=== PATIENT | male | born 1955 | race Caucasian/White ===

== ENCOUNTER 2020-11-22 13:12 | Inpatient (IN) | payer MEDICAID, OTHER, SELFPAY ==
[~2020-11-22] VITALS: Ht 172.7 cm; Wt 57.6 kg
[2020-11-22] MEDS ORDERED: CEFTRIAXONE 1 G PREMIX 50 ML IV ONE (15:15)
[2020-11-22] MEDS ORDERED: AZITHROMYCIN 500 MG in DEXT 5% WATER 250 ML IV SCH ×3 (15:15→22:00)
[2020-11-22] MEDS ORDERED: SODIUM CHLORIDE 0.9% 500 ML IV ONE (15:15)
[2020-11-22] MEDS ORDERED: MAGNESIUM/ALUMINUM HYDROXIDE/SIMETHICONE 30ML UDC PO PRN (18:30)
[2020-11-22] MEDS ORDERED: ONDANSETRON HCL 4MG/2ML INJ IV PRN (18:30)
[2020-11-22] MEDS ORDERED: GUAIFENESIN 200MG/10ML SUGAR FREE UDC PO PRN (18:30)
[2020-11-22] MEDS ORDERED: DOCUSATE SODIUM 100MG CAPSULE PO PRN (18:30)
[2020-11-22] MEDS ORDERED: CEFTRIAXONE 1 G PREMIX 50 ML IV SCH (18:30)
[2020-11-22] MEDS ORDERED: MIDAZOLAM HCL 50 MG in DEXTROSE 5% WATER 40 ML IV ONE (18:45)
[2020-11-22] MEDS ORDERED: ETOMIDATE 2MG/ML 10ML VIAL IV ONE (18:45)
[2020-11-22] MEDS ORDERED: VECURONIUM BROMIDE 10 MG/VIAL IV ONE (18:45)
[2020-11-22 19:15] LABS: CHLORIDE 96 mEq/L (98-107)
[2020-11-22 19:20] LABS: BASOPHILS % 0.2 % (0.0-2.0); EOSINOPHILS % 0.1 % (0.0-5.0); HEMATOCRIT. 31.1 % (42.0-52.0); HEMOGLOBIN. 10.2 g/dL (14.0-18.0); LYMPHOCYTES % 7.2 % (20.0-50.0); MEAN CORPUSCULAR HEMOGLOBIN 28.4 pg (28.0-32.0); MEAN CORPUSCULAR VOLUME 86.7 fL (80.0-94.0); MEAN PLATELET VOLUME 9.1 fl (7.4-10.4); MONOCYTES % 4.5 % (2.0-8.0); PLATELET 289 x1000/uL (130-400); RED BLOOD CELL COUNT 3.58 mill/uL (4.7-6.1)
[2020-11-22] MEDS ORDERED: MIDAZOLAM HCL 100 MG in DEXT 5% WATER 80 ML IV NR (19:30)
[2020-11-22 20:10] LABS: BG BASE EXCESS -5.3 mmol/L (-2.0-2.0); BG CARBOXYHEMOGLOBIN 0.3 % (0.5-1.5); BG DEOXYHEMOGLOBIN 7.7 % (0.0-5.0); BG FRACTION INSPIRED OXYGEN 100; BG HCO3 ACT 20.4 mmol/L (22.0-26.0); BG METHEMOGLOBIN 0.4 % (0.0-1.5); BG OXYGEN SATURATION 92.2 % (92.0-98.5); BG OXYHEMOGLOBIN 91.6 % (94.0-97.0); BG PCO2 40.7 mmHg (35.0-45.0); BG PH 7.318 (7.350-7.450); BG PO2 73.8 mmHg (75.0-100.0); BG SAMPLE SITE RIGHT RADIAL; BG TOTAL HEMOGLOBIN 11.4 g/dL (12.0-18.0); BG VENT MODE VENT - AC
[2020-11-22] MEDS ORDERED: PROPOFOL 10MG/ML 100ML 100 ML IV SCH (21:15)
[2020-11-22] MEDS: IPRATROPIUM BROMIDE (0.02%) 0.5MG/2.5ML NEB HHN SCH (21:58)
[2020-11-22] MEDS ORDERED: ENOXAPARIN 40MG/0.4ML SYR SUBCUT SCH (22:00)
[2020-11-23] MEDS ORDERED: EPINEPHRINE 0.1MG/ML (1:10,000) 10ML SYR ONE
[2020-11-23] MEDS ORDERED: SODIUM CHLORIDE 0.9% 10ML VIAL ONE
[2020-11-23] MEDS ORDERED: FENTANYL CITRATE/PF 1,000 MCG in SODIUM CHLORIDE 0.9% 80 ML IV STA (00:53)
[2020-11-23] MEDS ORDERED: FENTANYL CITRATE/PF 2,500 MCG in SODIUM CHLORIDE 0.9% 200 ML IV PRN (01:45)
[2020-11-23] MEDS: IPRATROPIUM BROMIDE (0.02%) 0.5MG/2.5ML NEB HHN SCH ×2 (04:14→20:34)
[2020-11-23] MEDS ORDERED: NOREPINEPHRINE 8 MG in DEXT 5% WATER 242 ML IV PRN (04:45)
[2020-11-23] MEDS: NOREPINEPHRINE 8 MG in SODIUM CHLORIDE 0.9% 242 ML IV SCH (05:28)
[2020-11-23 08:23] LABS: BG BASE EXCESS -0.3 mmol/L (-2.0-2.0); BG CARBOXYHEMOGLOBIN 0.3 % (0.5-1.5); BG DEOXYHEMOGLOBIN 5.4 % (0.0-5.0); BG METHEMOGLOBIN 0.3 % (0.0-1.5); BG OXYGEN SATURATION 94.6 % (92.0-98.5); BG PCO2 32.8 mmHg (35.0-45.0); BG PH 7.464 (7.350-7.450); BG PO2 77.6 mmHg (75.0-100.0); BG SAMPLE SITE RIGHT RADIAL; BG TOTAL HEMOGLOBIN 10.4 g/dL (12.0-18.0); BG VENT MODE VENT - AC
[2020-11-23] MEDS: DEXAMETHASONE 10 MG/ML VIAL IV SCH (09:00)
[2020-11-23] MEDS: FENTANYL CITRATE/PF 2,500 MCG in SODIUM CHLORIDE 0.9% 200 ML IV PRN (11:38)
[2020-11-23] MEDS: MIDAZOLAM HCL 100 MG in DEXT 5% WATER 80 ML IV NR ×2 (11:39→17:33)
[2020-11-23] MEDS: PANTOPRAZOLE SODIUM 40 MG/VIAL IV SCH (18:18)
[2020-11-23] MEDS: CEFTRIAXONE 1,000 MG in DEXTROSE 5% WATER 50 ML IV SCH (22:35)
[2020-11-23] MEDS: ENOXAPARIN 40MG/0.4ML SYR SUBCUT SCH (22:36)
[2020-11-23] MEDS: AZITHROMYCIN 500 MG in DEXT 5% WATER 250 ML IV SCH (22:37)
[2020-11-24] MEDS: IPRATROPIUM BROMIDE (0.02%) 0.5MG/2.5ML NEB HHN SCH ×5 (00:42→15:34)
[2020-11-24] MEDS: NOREPINEPHRINE 8 MG in SODIUM CHLORIDE 0.9% 242 ML IV SCH (04:02)
[2020-11-24 05:29] LABS: HEMATOCRIT. 28.1 % (42.0-52.0); HEMOGLOBIN. 9.7 g/dL (14.0-18.0); MEAN CORPUSCULAR HEMOGLOBIN 29.2 pg (28.0-32.0); MEAN CORPUSCULAR VOLUME 85.1 fL (80.0-94.0); MEAN PLATELET VOLUME 8.8 fl (7.4-10.4); PLATELET 309 x1000/uL (130-400); RED BLOOD CELL COUNT 3.31 mill/uL (4.7-6.1); RED CELL DISTRIBUTION WIDTH 14.1 % (11.6-14.6)
[2020-11-24 05:34] LABS: CHLORIDE 104 mEq/L (98-107)
[2020-11-24 05:42] LABS: PHOSPHORUS 3.1 mg/dL (2.5-4.9)
[2020-11-24] MEDS ORDERED: DEXTROSE 50% WATER 50ML SYRINGE IV PRN (08:15)
[2020-11-24] MEDS: BLOOD SUGAR DIAGNOSTIC STRIP TEST SCH ×4 (08:32→21:00)
[2020-11-24] MEDS: PANTOPRAZOLE SODIUM 40 MG/VIAL IV SCH (08:46)
[2020-11-24] MEDS: DEXAMETHASONE 10 MG/ML VIAL IV SCH (08:46)
[2020-11-24] MEDS: INSULIN LISPRO 100 UNITS/ML SUBCUT SCH ×3 (08:46→17:07)
[2020-11-24 10:46] LABS: BG BASE EXCESS -2.1 mmol/L (-2.0-2.0); BG CARBOXYHEMOGLOBIN 0.3 % (0.5-1.5); BG DEOXYHEMOGLOBIN 1.3 % (0.0-5.0); BG FRACTION INSPIRED OXYGEN 70; BG HCO3 ACT 22.4 mmol/L (22.0-26.0); BG METHEMOGLOBIN 0.3 % (0.0-1.5); BG OXYGEN SATURATION 98.7 % (92.0-98.5); BG OXYHEMOGLOBIN 98.1 % (94.0-97.0); BG PCO2 37.5 mmHg (35.0-45.0); BG PH 7.395 (7.350-7.450); BG PO2 145.5 mmHg (75.0-100.0); BG SAMPLE SITE RIGHT RADIAL; BG TOTAL HEMOGLOBIN 10.3 g/dL (12.0-18.0); BG TOTAL RESPIRATORY RATE 23 b/min; BG VENT MODE VENT - AC
[2020-11-24] MEDS ORDERED: MIDAZOLAM HCL 100 MG in DEXT 5% WATER 80 ML IV PRN (14:00)
[2020-11-24 18:00] LABS: PLATELET ESTIMATE NORMAL
[2020-11-24] MEDS: AZITHROMYCIN 500 MG in DEXT 5% WATER 250 ML IV SCH (20:00)
[2020-11-24] MEDS: ENOXAPARIN 40MG/0.4ML SYR SUBCUT SCH (21:00)
[2020-11-24] MEDS: CEFTRIAXONE 1,000 MG in DEXTROSE 5% WATER 50 ML IV SCH (22:30)
[2020-11-25] MEDS: IPRATROPIUM BROMIDE (0.02%) 0.5MG/2.5ML NEB HHN SCH ×5 (02:05→21:16)
[2020-11-25] MEDS ORDERED: CEFTRIAXONE SODIUM 1 G/VIAL ONE (05:32)
[2020-11-25] MEDS: BLOOD SUGAR DIAGNOSTIC STRIP TEST SCH ×4 (06:30→21:00)
[2020-11-25] MEDS: INSULIN LISPRO 100 UNITS/ML SUBCUT SCH ×4 (07:00→21:00)
[2020-11-25 08:36] LABS: BG BASE EXCESS -1.2 mmol/L (-2.0-2.0); BG CARBOXYHEMOGLOBIN 0.2 % (0.5-1.5); BG DEOXYHEMOGLOBIN 5.4 % (0.0-5.0); BG HCO3 ACT 23.8 mmol/L (22.0-26.0); BG METHEMOGLOBIN 0.3 % (0.0-1.5); BG OXYGEN SATURATION 94.6 % (92.0-98.5); BG OXYHEMOGLOBIN 94.1 % (94.0-97.0); BG PCO2 40.7 mmHg (35.0-45.0); BG PH 7.384 (7.350-7.450); BG PO2 81.3 mmHg (75.0-100.0); BG SAMPLE SITE RIGHT BRACHIAL; BG TOTAL HEMOGLOBIN 10.7 g/dL (12.0-18.0); BG VENT MODE VENT - AC
[2020-11-25] MEDS: FAMOTIDINE 20MG/2ML VIAL IV SCH ×2 (09:00→21:00)
[2020-11-25] MEDS: DEXAMETHASONE 10 MG/ML VIAL IV SCH (09:00)
[2020-11-25] MEDS ORDERED: INSULIN GLARGINE UD 100 UNITS/ML SYR SUBCUT SCH (10:00)
[2020-11-25] MEDS: AZITHROMYCIN 500 MG in DEXT 5% WATER 250 ML IV SCH (20:00)
[2020-11-25] MEDS: ENOXAPARIN 40MG/0.4ML SYR SUBCUT SCH (21:00)
[2020-11-25] MEDS: CEFTRIAXONE 1,000 MG in DEXTROSE 5% WATER 50 ML IV SCH (22:30)
[2020-11-26] LABS: CREATINE KINASE 42 IU/L (39-308)
[2020-11-26 00:01] LABS: CREATINE KINASE MB FRACTION < 1.0 ng/mL (0.5-3.6)
[2020-11-26] MEDS: IPRATROPIUM BROMIDE (0.02%) 0.5MG/2.5ML NEB HHN SCH ×6 (00:40→21:52)
[2020-11-26 05:26] LABS: HEMATOCRIT. 29.9 % (42.0-52.0); HEMOGLOBIN. 10.1 g/dL (14.0-18.0); MEAN CORPUSCULAR HEMOGLOBIN 28.8 pg (28.0-32.0); MEAN CORPUSCULAR VOLUME 85.5 fL (80.0-94.0); MEAN PLATELET VOLUME 8.9 fl (7.4-10.4); PLATELET 383 x1000/uL (130-400); RED BLOOD CELL COUNT 3.49 mill/uL (4.7-6.1); RED CELL DISTRIBUTION WIDTH 14.2 % (11.6-14.6)
[2020-11-26 06:05] LABS: CHLORIDE 108 mEq/L (98-107)
[2020-11-26 06:14] LABS: CREATINE KINASE 62 IU/L (39-308)
[2020-11-26 06:17] LABS: CREATINE KINASE MB FRACTION 1.1 ng/mL (0.5-3.6)
[2020-11-26] MEDS: BLOOD SUGAR DIAGNOSTIC STRIP TEST SCH ×3 (07:59→17:15)
[2020-11-26] MEDS: INSULIN LISPRO 100 UNITS/ML SUBCUT SCH ×3 (09:00→17:00)
[2020-11-26] MEDS: DEXAMETHASONE 10 MG/ML VIAL IV SCH (09:20)
[2020-11-26] MEDS: FAMOTIDINE 20MG/2ML VIAL IV SCH (09:20)
[2020-11-26] MEDS ORDERED: PROPOFOL 10MG/ML 100ML 100 ML IV PRN (09:30)
[2020-11-26 10:24] LABS: NUCLEATED RED BLOOD CELLS 1 /100 WBC
[2020-11-26 10:25] LABS: PLATELET ESTIMATE NORMAL
[2020-11-26] MEDS: INSULIN GLARGINE UD 100 UNITS/ML SYR SUBCUT SCH (10:34)
[2020-11-26 10:37] LABS: BG BASE EXCESS 1.7 mmol/L (-2.0-2.0); BG CARBOXYHEMOGLOBIN 0.3 % (0.5-1.5); BG DEOXYHEMOGLOBIN 8.7 % (0.0-5.0); BG FRACTION INSPIRED OXYGEN 60; BG HCO3 ACT 25.8 mmol/L (22.0-26.0); BG METHEMOGLOBIN 0.3 % (0.0-1.5); BG OXYGEN SATURATION 91.2 % (92.0-98.5); BG OXYHEMOGLOBIN 90.7 % (94.0-97.0); BG PCO2 38.6 mmHg (35.0-45.0); BG PH 7.443 (7.350-7.450); BG PO2 64.1 mmHg (75.0-100.0); BG SAMPLE SITE RIGHT RADIAL; BG TOTAL HEMOGLOBIN 10.6 g/dL (12.0-18.0); BG TOTAL RESPIRATORY RATE 22 b/min; BG VENT MODE VENT - AC
[2020-11-26] MEDS ORDERED: IOHEXOL-350 100 ML BOTTLE ONE (17:00)
[2020-11-26] MEDS: FENTANYL CITRATE/PF 2,500 MCG in SODIUM CHLORIDE 0.9% 200 ML IV PRN (22:18)
[2020-11-27] MEDS: IPRATROPIUM BROMIDE (0.02%) 0.5MG/2.5ML NEB HHN SCH ×5 (01:09→22:53)
[2020-11-27] MEDS: MIDAZOLAM HCL 100 MG in SODIUM CHLORIDE 0.9% 80 ML IV PRN (03:04)
[2020-11-27] MEDS: ENOXAPARIN 40MG/0.4ML SYR SUBCUT SCH ×2 (06:09→21:00)
[2020-11-27] MEDS: FENTANYL CITRATE/PF 2,500 MCG in SODIUM CHLORIDE 0.9% 200 ML IV PRN ×2 (07:55→15:58)
[2020-11-27 08:03] LABS: BG BASE EXCESS 5.2 mmol/L (-2.0-2.0); BG CARBOXYHEMOGLOBIN 0.3 % (0.5-1.5); BG DEOXYHEMOGLOBIN 7.2 % (0.0-5.0); BG HCO3 ACT 30.3 mmol/L (22.0-26.0); BG METHEMOGLOBIN 0.3 % (0.0-1.5); BG OXYGEN SATURATION 92.8 % (92.0-98.5); BG OXYHEMOGLOBIN 92.2 % (94.0-97.0); BG PCO2 46.8 mmHg (35.0-45.0); BG PH 7.429 (7.350-7.450); BG SAMPLE SITE RIGHT RADIAL; BG TOTAL HEMOGLOBIN 11.5 g/dL (12.0-18.0); BG VENT MODE VENT - AC
[2020-11-27] MEDS: DEXAMETHASONE 10 MG/ML VIAL IV SCH (09:35)
[2020-11-27] MEDS: FAMOTIDINE 20MG/2ML VIAL IV SCH ×3 (09:35→21:00)
[2020-11-27] MEDS: INSULIN GLARGINE UD 100 UNITS/ML SYR SUBCUT SCH ×3 (09:35→22:00)
[2020-11-27] MEDS: ACETAMINOPHEN 325MG TABLET PO PRN (09:36)
[2020-11-27] MEDS: BLOOD SUGAR DIAGNOSTIC STRIP TEST SCH ×3 (10:16→19:21)
[2020-11-27] MEDS: INSULIN LISPRO 100 UNITS/ML SUBCUT SCH ×4 (10:16→20:00)
[2020-11-27 11:45] LABS: HEMATOCRIT. 28.1 % (42.0-52.0); HEMOGLOBIN. 9.4 g/dL (14.0-18.0); MEAN CORPUSCULAR HEMOGLOBIN 28.5 pg (28.0-32.0); MEAN CORPUSCULAR VOLUME 85.5 fL (80.0-94.0); MEAN PLATELET VOLUME 8.5 fl (7.4-10.4); PLATELET 301 x1000/uL (130-400); RED BLOOD CELL COUNT 3.28 mill/uL (4.7-6.1); RED CELL DISTRIBUTION WIDTH 14.4 % (11.6-14.6)
[2020-11-27 11:50] LABS: CHLORIDE 111 mEq/L (98-107)
[2020-11-27 13:03] LABS: ATYPICAL LYMPHOCYTES 1; PLATELET ESTIMATE NORMAL
[2020-11-27] MEDS: ERGOCALCIFEROL 50000UNITS CAPSULE PO SCH (19:00)
[2020-11-28] MEDS: IPRATROPIUM BROMIDE (0.02%) 0.5MG/2.5ML NEB HHN SCH ×5 (03:38→21:56)
[2020-11-28 06:09] LABS: HEMATOCRIT. 28.9 % (42.0-52.0); HEMOGLOBIN. 9.6 g/dL (14.0-18.0); MEAN CORPUSCULAR HEMOGLOBIN 28.6 pg (28.0-32.0); MEAN CORPUSCULAR VOLUME 86.1 fL (80.0-94.0); MEAN PLATELET VOLUME 8.7 fl (7.4-10.4); PLATELET 379 x1000/uL (130-400); RED BLOOD CELL COUNT 3.36 mill/uL (4.7-6.1)
[2020-11-28 06:18] LABS: CHLORIDE 111 mEq/L (98-107)
[2020-11-28] MEDS ORDERED: ASCORBIC ACID 500MG/5ML 120ML PO SCH (09:00)
[2020-11-28 09:56] LABS: BG BASE EXCESS 2.6 mmol/L (-2.0-2.0); BG CARBOXYHEMOGLOBIN 0.2 % (0.5-1.5); BG DEOXYHEMOGLOBIN 0.8 % (0.0-5.0); BG FRACTION INSPIRED OXYGEN 100; BG HCO3 ACT 26.6 mmol/L (22.0-26.0); BG METHEMOGLOBIN 0.3 % (0.0-1.5); BG OXYGEN SATURATION 99.2 % (92.0-98.5); BG OXYHEMOGLOBIN 98.7 % (94.0-97.0); BG PH 7.452 (7.350-7.450); BG PO2 265.1 mmHg (75.0-100.0); BG SAMPLE SITE RIGHT BRACHIAL; BG TOTAL HEMOGLOBIN 10.3 g/dL (12.0-18.0); BG TOTAL RESPIRATORY RATE 26 b/min; BG VENT MODE VENT - AC
[2020-11-28] MEDS: DEXAMETHASONE 10 MG/ML VIAL IV SCH (10:00)
[2020-11-28] MEDS: INSULIN GLARGINE UD 100 UNITS/ML SYR SUBCUT SCH ×2 (10:00→23:47)
[2020-11-28] MEDS: FAMOTIDINE 20MG/2ML VIAL IV SCH ×2 (10:00→23:46)
[2020-11-28] MEDS: BLOOD SUGAR DIAGNOSTIC STRIP TEST SCH ×3 (11:30→23:47)
[2020-11-28] MEDS ORDERED: SODIUM POLYSTYRENE SULFONATE 15 G/60 ML BOT PO SCH (13:00)
[2020-11-28 14:12] LABS: PLATELET ESTIMATE NORMAL
[2020-11-28] MEDS: ENOXAPARIN 40MG/0.4ML SYR SUBCUT SCH (23:46)
[2020-11-28] MEDS: ASCORBIC ACID 500 MG TABLET PO SCH (23:46)
[2020-11-28] MEDS: INSULIN LISPRO 100 UNITS/ML SUBCUT SCH (23:46)
[2020-11-29] MEDS: IPRATROPIUM BROMIDE (0.02%) 0.5MG/2.5ML NEB HHN SCH ×4 (02:56→20:49)
[2020-11-29 04:48] LABS: HEMATOCRIT. 29.9 % (42.0-52.0); HEMOGLOBIN. 9.9 g/dL (14.0-18.0); MEAN CORPUSCULAR HEMOGLOBIN 28.6 pg (28.0-32.0); MEAN CORPUSCULAR VOLUME 85.9 fL (80.0-94.0); MEAN PLATELET VOLUME 8.5 fl (7.4-10.4); PLATELET 343 x1000/uL (130-400); RED BLOOD CELL COUNT 3.48 mill/uL (4.7-6.1); RED CELL DISTRIBUTION WIDTH 14.3 % (11.6-14.6)
[2020-11-29 04:51] LABS: CHLORIDE 111 mEq/L (98-107)
[2020-11-29] MEDS: BLOOD SUGAR DIAGNOSTIC STRIP TEST SCH ×4 (06:28→21:00)
[2020-11-29] MEDS: INSULIN LISPRO 100 UNITS/ML SUBCUT SCH ×4 (06:29→21:00)
[2020-11-29] MEDS: ACETAMINOPHEN 325MG TABLET PO PRN ×2 (07:25→18:40)
[2020-11-29] MEDS: ASCORBIC ACID 500 MG TABLET PO SCH ×2 (09:20→21:00)
[2020-11-29] MEDS: DEXAMETHASONE 10 MG/ML VIAL IV SCH (09:20)
[2020-11-29] MEDS: FAMOTIDINE 20MG/2ML VIAL IV SCH ×2 (09:20→21:00)
[2020-11-29 10:11] LABS: BG BASE EXCESS 5.4 mmol/L (-2.0-2.0); BG DEOXYHEMOGLOBIN 5.9 % (0.0-5.0); BG FRACTION INSPIRED OXYGEN 70; BG HCO3 ACT 29.5 mmol/L (22.0-26.0); BG METHEMOGLOBIN 0.3 % (0.0-1.5); BG OXYGEN SATURATION 94.1 % (92.0-98.5); BG OXYHEMOGLOBIN 93.8 % (94.0-97.0); BG PCO2 41.3 mmHg (35.0-45.0); BG PH 7.472 (7.350-7.450); BG PO2 73.6 mmHg (75.0-100.0); BG SAMPLE SITE RIGHT RADIAL; BG TOTAL HEMOGLOBIN 8.4 g/dL (12.0-18.0); BG VENT MODE VENT - AC
[2020-11-29] MEDS: INSULIN GLARGINE UD 100 UNITS/ML SYR SUBCUT SCH ×2 (10:34→22:00)
[2020-11-29 11:20] LABS: PLATELET ESTIMATE NORMAL
[2020-11-29] MEDS: ENOXAPARIN 40MG/0.4ML SYR SUBCUT SCH (21:00)
[2020-11-30] MEDS: IPRATROPIUM BROMIDE (0.02%) 0.5MG/2.5ML NEB HHN SCH ×4 (04:21→21:40)
[2020-11-30] MEDS: BLOOD SUGAR DIAGNOSTIC STRIP TEST SCH ×4 (06:38→21:00)
[2020-11-30] MEDS: INSULIN LISPRO 100 UNITS/ML SUBCUT SCH ×4 (07:00→22:40)
[2020-11-30 08:18] LABS: BG BASE EXCESS 3.7 mmol/L (-2.0-2.0); BG CARBOXYHEMOGLOBIN 0.3 % (0.5-1.5); BG DEOXYHEMOGLOBIN 9.4 % (0.0-5.0); BG HCO3 ACT 28.5 mmol/L (22.0-26.0); BG METHEMOGLOBIN 0.1 % (0.0-1.5); BG OXYGEN SATURATION 90.6 % (92.0-98.5); BG OXYHEMOGLOBIN 90.2 % (94.0-97.0); BG PCO2 44.5 mmHg (35.0-45.0); BG PH 7.425 (7.350-7.450); BG SAMPLE SITE RIGHT RADIAL; BG TOTAL HEMOGLOBIN 10.7 g/dL (12.0-18.0); BG VENT MODE VENT - AC
[2020-11-30] MEDS: DEXAMETHASONE 10 MG/ML VIAL IV SCH (09:16)
[2020-11-30] MEDS: FAMOTIDINE 20MG/2ML VIAL IV SCH ×2 (09:16→23:39)
[2020-11-30] MEDS: ASCORBIC ACID 500 MG TABLET PO SCH ×2 (09:37→23:39)
[2020-11-30] MEDS: INSULIN GLARGINE UD 100 UNITS/ML SYR SUBCUT SCH ×2 (10:38→23:39)
[2020-11-30 16:54] LABS: HEMATOCRIT. 31.6 % (42.0-52.0); HEMOGLOBIN. 10.2 g/dL (14.0-18.0); MEAN CORPUSCULAR HEMOGLOBIN 28.1 pg (28.0-32.0); MEAN CORPUSCULAR VOLUME 86.8 fL (80.0-94.0); MEAN PLATELET VOLUME 8.8 fl (7.4-10.4); PLATELET 361 x1000/uL (130-400); RED BLOOD CELL COUNT 3.64 mill/uL (4.7-6.1); RED CELL DISTRIBUTION WIDTH 14.7 % (11.6-14.6)
[2020-11-30 16:59] LABS: CHLORIDE 116 mEq/L (98-107)
[2020-11-30 17:57] LABS: PLATELET ESTIMATE NORMAL
[2020-11-30] MEDS: CEFEPIME 1,000 MG in DEXTROSE 5% WATER 50 ML IV SCH (18:08)
[2020-11-30] MEDS: MIDAZOLAM HCL 100 MG in SODIUM CHLORIDE 0.9% 80 ML IV PRN (22:15)
[2020-11-30] MEDS: ENOXAPARIN 40MG/0.4ML SYR SUBCUT SCH (23:39)
[2020-12-01] MEDS: IPRATROPIUM BROMIDE (0.02%) 0.5MG/2.5ML NEB HHN SCH ×5 (01:18→21:00)
[2020-12-01 05:25] LABS: CHLORIDE 117 mEq/L (98-107)
[2020-12-01 05:40] LABS: HEMATOCRIT. 34.2 % (42.0-52.0); MEAN CORPUSCULAR HEMOGLOBIN 27.9 pg (28.0-32.0); MEAN CORPUSCULAR VOLUME 86.8 fL (80.0-94.0); RED BLOOD CELL COUNT 3.94 mill/uL (4.7-6.1)
[2020-12-01 05:41] LABS: MEAN PLATELET VOLUME 9.7 fl (7.4-10.4); PLATELET 291 x1000/uL (130-400); RED CELL DISTRIBUTION WIDTH 14.6 % (11.6-14.6)
[2020-12-01] MEDS: CEFEPIME 1,000 MG in DEXTROSE 5% WATER 50 ML IV SCH ×2 (07:27→18:00)
[2020-12-01] MEDS: ACETAMINOPHEN 325MG TABLET PO PRN (07:27)
[2020-12-01] MEDS: DEXAMETHASONE 10 MG/ML VIAL IV SCH (08:16)
[2020-12-01] MEDS: FAMOTIDINE 20MG/2ML VIAL IV SCH ×2 (08:16→21:00)
[2020-12-01] MEDS: BLOOD SUGAR DIAGNOSTIC STRIP TEST SCH ×4 (08:29→21:00)
[2020-12-01] MEDS: ASCORBIC ACID 500 MG TABLET PO SCH ×2 (08:29→21:00)
[2020-12-01] MEDS: INSULIN LISPRO 100 UNITS/ML SUBCUT SCH ×4 (08:34→21:00)
[2020-12-01 08:50] LABS: PLATELET ESTIMATE NORMAL
[2020-12-01] MEDS ORDERED: SODIUM CHLORIDE 0.45% 500 ML IV SCH (10:00)
[2020-12-01] MEDS: INSULIN GLARGINE UD 100 UNITS/ML SYR SUBCUT SCH ×2 (10:03→22:00)
[2020-12-01 11:16] LABS: BG BASE EXCESS 4.5 mmol/L (-2.0-2.0); BG CARBOXYHEMOGLOBIN 0.3 % (0.5-1.5); BG DEOXYHEMOGLOBIN 3.3 % (0.0-5.0); BG FRACTION INSPIRED OXYGEN 65; BG HCO3 ACT 29.7 mmol/L (22.0-26.0); BG METHEMOGLOBIN 0.2 % (0.0-1.5); BG OXYGEN SATURATION 96.7 % (92.0-98.5); BG OXYHEMOGLOBIN 96.2 % (94.0-97.0); BG PH 7.419 (7.350-7.450); BG PO2 97.5 mmHg (75.0-100.0); BG SAMPLE SITE RIGHT RADIAL; BG VENT MODE VENT - AC
[2020-12-01] MEDS: DEXTROSE 5% WATER 1,000 ML IV SCH (13:00)
[2020-12-01] MEDS: ENOXAPARIN 40MG/0.4ML SYR SUBCUT SCH (21:00)
[2020-12-02] VITALS (13 sets, daily range): BP systolic 117–164; BP diastolic 63–85
[2020-12-02] MEDS: DEXTROSE 5% WATER 1,000 ML IV SCH ×2 (02:20→16:10)
[2020-12-02] MEDS: IPRATROPIUM BROMIDE (0.02%) 0.5MG/2.5ML NEB HHN SCH ×3 (02:42→20:30)
[2020-12-02 04:57] LABS: HEMATOCRIT. 33.1 % (42.0-52.0); HEMOGLOBIN. 10.7 g/dL (14.0-18.0); MEAN CORPUSCULAR HEMOGLOBIN 28.3 pg (28.0-32.0); MEAN CORPUSCULAR VOLUME 87.3 fL (80.0-94.0); MEAN PLATELET VOLUME 9.4 fl (7.4-10.4); PLATELET 367 x1000/uL (130-400); RED BLOOD CELL COUNT 3.79 mill/uL (4.7-6.1); RED CELL DISTRIBUTION WIDTH 14.7 % (11.6-14.6)
[2020-12-02 05:06] LABS: CHLORIDE 118 mEq/L (98-107)
[2020-12-02] MEDS: CEFEPIME 1,000 MG in DEXTROSE 5% WATER 50 ML IV SCH (06:00)
[2020-12-02] MEDS: BLOOD SUGAR DIAGNOSTIC STRIP TEST SCH ×3 (06:30→21:53)
[2020-12-02 06:54] LABS: PLATELET ESTIMATE NORMAL
[2020-12-02] MEDS: INSULIN LISPRO 100 UNITS/ML SUBCUT SCH ×4 (07:00→21:52)
[2020-12-02] MEDS ORDERED: MIDAZOLAM HCL 100 MG in DEXT 5% WATER 80 ML IV PRN (08:23)
[2020-12-02] MEDS: DEXAMETHASONE 10 MG/ML VIAL IV SCH (09:34)
[2020-12-02] MEDS: FAMOTIDINE 20MG/2ML VIAL IV SCH ×2 (09:34→21:51)
[2020-12-02] MEDS: ASCORBIC ACID 500 MG TABLET PO SCH ×2 (09:35→21:51)
[2020-12-02] MEDS: INSULIN GLARGINE UD 100 UNITS/ML SYR SUBCUT SCH ×2 (10:00→22:22)
[2020-12-02 10:18] LABS: BG BASE EXCESS 3.9 mmol/L (-2.0-2.0); BG CARBOXYHEMOGLOBIN 0.4 % (0.5-1.5); BG DEOXYHEMOGLOBIN 4.3 % (0.0-5.0); BG FRACTION INSPIRED OXYGEN 65; BG HCO3 ACT 29.1 mmol/L (22.0-26.0); BG METHEMOGLOBIN 0.2 % (0.0-1.5); BG OXYGEN SATURATION 95.7 % (92.0-98.5); BG OXYHEMOGLOBIN 95.1 % (94.0-97.0); BG PCO2 46.8 mmHg (35.0-45.0); BG PH 7.411 (7.350-7.450); BG PO2 84.7 mmHg (75.0-100.0); BG SAMPLE SITE RIGHT RADIAL; BG TOTAL HEMOGLOBIN 10.3 g/dL (12.0-18.0); BG TOTAL RESPIRATORY RATE 22 b/min; BG VENT MODE VENT - AC
[2020-12-02] MEDS: FENTANYL CITRATE/PF 2,500 MCG in SODIUM CHLORIDE 0.9% 200 ML IV PRN (21:48)
[2020-12-02] MEDS: ENOXAPARIN 40MG/0.4ML SYR SUBCUT SCH (21:52)
[2020-12-02] MEDS: MIDAZOLAM HCL 100 MG in SODIUM CHLORIDE 0.9% 80 ML IV PRN (22:23)
[2020-12-03] VITALS (49 sets, daily range): BP systolic 100–173; BP diastolic 59–128
[2020-12-03] MEDS: IPRATROPIUM BROMIDE (0.02%) 0.5MG/2.5ML NEB HHN SCH ×4 (03:14→20:21)
[2020-12-03] MEDS: DEXTROSE 5% WATER 1,000 ML IV SCH ×2 (05:49→17:43)
[2020-12-03 06:10] LABS: HEMATOCRIT. 32.7 % (42.0-52.0); HEMOGLOBIN. 10.4 g/dL (14.0-18.0); MEAN CORPUSCULAR VOLUME 88.5 fL (80.0-94.0); MEAN PLATELET VOLUME 9.4 fl (7.4-10.4); PLATELET 338 x1000/uL (130-400); RED CELL DISTRIBUTION WIDTH 14.8 % (11.6-14.6)
[2020-12-03 06:11] LABS: CHLORIDE 111 mEq/L (98-107)
[2020-12-03] MEDS: FENTANYL CITRATE/PF 2,500 MCG in SODIUM CHLORIDE 0.9% 200 ML IV PRN ×3 (08:01→20:35)
[2020-12-03] MEDS: MIDAZOLAM HCL 100 MG in SODIUM CHLORIDE 0.9% 80 ML IV PRN (08:15)
[2020-12-03] MEDS: INSULIN GLARGINE UD 100 UNITS/ML SYR SUBCUT SCH ×2 (09:44→21:48)
[2020-12-03] MEDS: FAMOTIDINE 20MG/2ML VIAL IV SCH ×2 (09:45→21:29)
[2020-12-03] MEDS: DEXAMETHASONE 10 MG/ML VIAL IV SCH (09:45)
[2020-12-03] MEDS: ASCORBIC ACID 500 MG TABLET PO SCH ×2 (09:45→21:29)
[2020-12-03] MEDS: ACETAMINOPHEN 325MG TABLET PO PRN (09:46)
[2020-12-03 09:53] LABS: BG BASE EXCESS 4.7 mmol/L (-2.0-2.0); BG CARBOXYHEMOGLOBIN 0.3 % (0.5-1.5); BG DEOXYHEMOGLOBIN 4.2 % (0.0-5.0); BG FRACTION INSPIRED OXYGEN 70; BG METHEMOGLOBIN 0.3 % (0.0-1.5); BG OXYGEN SATURATION 95.8 % (92.0-98.5); BG OXYHEMOGLOBIN 95.2 % (94.0-97.0); BG PH 7.414 (7.350-7.450); BG PO2 85.7 mmHg (75.0-100.0); BG SAMPLE SITE RIGHT RADIAL; BG TOTAL HEMOGLOBIN 10.8 g/dL (12.0-18.0); BG TOTAL RESPIRATORY RATE 28 b/min; BG VENT MODE VENT - AC
[2020-12-03] MEDS: BLOOD SUGAR DIAGNOSTIC STRIP TEST SCH ×2 (11:43→17:17)
[2020-12-03 11:49] LABS: PLATELET ESTIMATE NORMAL
[2020-12-03] MEDS: CEFEPIME 1,000 MG in DEXTROSE 5% WATER 50 ML IV SCH ×2 (12:00→17:43)
[2020-12-03] MEDS: INSULIN LISPRO 100 UNITS/ML SUBCUT SCH ×2 (12:01→17:49)
[2020-12-03] MEDS: MIDAZOLAM HCL 100 MG in DEXT 5% WATER 80 ML IV PRN (19:11)
[2020-12-03] MEDS: ENOXAPARIN 40MG/0.4ML SYR SUBCUT SCH (21:29)
[2020-12-04] VITALS (44 sets, daily range): BP systolic 106–177; BP diastolic 63–122
[2020-12-04] MEDS: INSULIN LISPRO 100 UNITS/ML SUBCUT SCH ×4 (01:03→18:38)
[2020-12-04] MEDS: IPRATROPIUM BROMIDE (0.02%) 0.5MG/2.5ML NEB HHN SCH ×4 (02:40→20:52)
[2020-12-04] MEDS: FENTANYL CITRATE/PF 2,500 MCG in SODIUM CHLORIDE 0.9% 200 ML IV PRN ×2 (06:11→18:36)
[2020-12-04] MEDS: CEFEPIME 1,000 MG in DEXTROSE 5% WATER 50 ML IV SCH ×2 (06:16→18:36)
[2020-12-04] MEDS: BLOOD SUGAR DIAGNOSTIC STRIP TEST SCH ×4 (06:44→18:09)
[2020-12-04] MEDS: DEXTROSE 5% WATER 1,000 ML IV SCH ×2 (07:40→21:14)
[2020-12-04] MEDS: DEXAMETHASONE 10 MG/ML VIAL IV SCH (09:00)
[2020-12-04] MEDS: ASCORBIC ACID 500 MG TABLET PO SCH ×2 (09:00→21:13)
[2020-12-04] MEDS: FAMOTIDINE 20MG/2ML VIAL IV SCH ×2 (09:00→21:14)
[2020-12-04 09:29] LABS: BG BASE EXCESS 4.6 mmol/L (-2.0-2.0); BG CARBOXYHEMOGLOBIN 0.6 % (0.5-1.5); BG DEOXYHEMOGLOBIN 5.2 % (0.0-5.0); BG FRACTION INSPIRED OXYGEN 60; BG HCO3 ACT 29.3 mmol/L (22.0-26.0); BG METHEMOGLOBIN 0.3 % (0.0-1.5); BG OXYGEN SATURATION 94.8 % (92.0-98.5); BG OXYHEMOGLOBIN 93.9 % (94.0-97.0); BG PCO2 44.2 mmHg (35.0-45.0); BG PH 7.439 (7.350-7.450); BG PO2 68.6 mmHg (75.0-100.0); BG SAMPLE SITE RIGHT RADIAL; BG TOTAL HEMOGLOBIN 9.1 g/dL (12.0-18.0); BG VENT MODE VENT - AC
[2020-12-04] MEDS: INSULIN GLARGINE UD 100 UNITS/ML SYR SUBCUT SCH ×2 (10:05→22:10)
[2020-12-04] MEDS: ACETAMINOPHEN 325MG TABLET PO PRN (10:23)
[2020-12-04] MEDS: MIDAZOLAM HCL 100 MG in DEXT 5% WATER 80 ML IV PRN ×2 (10:52→20:05)
[2020-12-04 12:19] LABS: HEMATOCRIT. 28.7 % (42.0-52.0); HEMOGLOBIN. 9.2 g/dL (14.0-18.0); MEAN CORPUSCULAR HEMOGLOBIN 27.7 pg (28.0-32.0); MEAN CORPUSCULAR VOLUME 86.2 fL (80.0-94.0); MEAN PLATELET VOLUME 9.2 fl (7.4-10.4); PLATELET 375 x1000/uL (130-400); RED BLOOD CELL COUNT 3.33 mill/uL (4.7-6.1); RED CELL DISTRIBUTION WIDTH 14.4 % (11.6-14.6)
[2020-12-04 12:24] LABS: CHLORIDE 100 mEq/L (98-107)
[2020-12-04 15:53] LABS: PLATELET ESTIMATE NORMAL
[2020-12-04] MEDS: ERGOCALCIFEROL 50000UNITS CAPSULE PO SCH (18:35)
[2020-12-04] MEDS: ENOXAPARIN 40MG/0.4ML SYR SUBCUT SCH (21:14)
[2020-12-05] VITALS (30 sets, daily range): BP systolic 90–183; BP diastolic 51–83
[2020-12-05] MEDS: BLOOD SUGAR DIAGNOSTIC STRIP TEST SCH ×4 (00:51→17:35)
[2020-12-05] MEDS: IPRATROPIUM BROMIDE (0.02%) 0.5MG/2.5ML NEB HHN SCH ×4 (02:57→20:18)
[2020-12-05] MEDS: FENTANYL CITRATE/PF 2,500 MCG in SODIUM CHLORIDE 0.9% 200 ML IV PRN ×2 (04:52→15:24)
[2020-12-05 05:44] LABS: BASOPHILS % 0.4 % (0.0-2.0); EOSINOPHILS % 2.3 % (0.0-5.0); HEMATOCRIT. 27.2 % (42.0-52.0); HEMOGLOBIN. 9.2 g/dL (14.0-18.0); LYMPHOCYTES % 7.5 % (20.0-50.0); MEAN CORPUSCULAR HEMOGLOBIN 28.5 pg (28.0-32.0); MEAN CORPUSCULAR VOLUME 84.4 fL (80.0-94.0); MEAN PLATELET VOLUME 9.5 fl (7.4-10.4); MONOCYTES % 3.5 % (2.0-8.0); NEUTROPHILS % 86.3 % (40.0-76.0); PLATELET 356 x1000/uL (130-400); RED BLOOD CELL COUNT 3.23 mill/uL (4.7-6.1); RED CELL DISTRIBUTION WIDTH 14.5 % (11.6-14.6)
[2020-12-05] MEDS: CEFEPIME 1,000 MG in DEXTROSE 5% WATER 50 ML IV SCH ×2 (05:44→17:44)
[2020-12-05] MEDS: INSULIN LISPRO 100 UNITS/ML SUBCUT SCH ×4 (05:46→17:43)
[2020-12-05 05:49] LABS: CHLORIDE 99 mEq/L (98-107)
[2020-12-05 09:56] LABS: BG BASE EXCESS 5.2 mmol/L (-2.0-2.0); BG CARBOXYHEMOGLOBIN 0.3 % (0.5-1.5); BG DEOXYHEMOGLOBIN 4.2 % (0.0-5.0); BG FRACTION INSPIRED OXYGEN 70; BG HCO3 ACT 30.1 mmol/L (22.0-26.0); BG METHEMOGLOBIN 0.2 % (0.0-1.5); BG OXYGEN SATURATION 95.8 % (92.0-98.5); BG OXYHEMOGLOBIN 95.3 % (94.0-97.0); BG PCO2 46.3 mmHg (35.0-45.0); BG PH 7.431 (7.350-7.450); BG PO2 82.8 mmHg (75.0-100.0); BG SAMPLE SITE RIGHT RADIAL; BG TOTAL HEMOGLOBIN 9.9 g/dL (12.0-18.0); BG TOTAL RESPIRATORY RATE 28 b/min; BG VENT MODE VENT - AC
[2020-12-05] MEDS: MIDAZOLAM HCL 100 MG in DEXT 5% WATER 80 ML IV PRN ×2 (11:14→19:11)
[2020-12-05] MEDS: ASCORBIC ACID 500 MG TABLET PO SCH ×2 (11:26→21:08)
[2020-12-05] MEDS: DEXAMETHASONE 10 MG/ML VIAL IV SCH (11:26)
[2020-12-05] MEDS: FAMOTIDINE 20MG/2ML VIAL IV SCH ×2 (11:26→21:08)
[2020-12-05] MEDS: INSULIN GLARGINE UD 100 UNITS/ML SYR SUBCUT SCH ×2 (11:27→22:04)
[2020-12-05] MEDS: DEXTROSE 5% WATER 1,000 ML IV SCH ×2 (11:27→23:40)
[2020-12-05] MEDS: ENOXAPARIN 40MG/0.4ML SYR SUBCUT SCH (21:08)
[2020-12-06] VITALS (44 sets, daily range): BP systolic 92–194; BP diastolic 54–93
[2020-12-06] MEDS: FENTANYL CITRATE/PF 2,500 MCG in SODIUM CHLORIDE 0.9% 200 ML IV PRN ×3 (02:50→22:20)
[2020-12-06] MEDS: BLOOD SUGAR DIAGNOSTIC STRIP TEST SCH ×4 (05:18→17:18)
[2020-12-06] MEDS: INSULIN LISPRO 100 UNITS/ML SUBCUT SCH ×4 (05:18→17:32)
[2020-12-06] MEDS: MIDAZOLAM HCL 100 MG in DEXT 5% WATER 80 ML IV PRN ×2 (06:12→19:06)
[2020-12-06 06:21] LABS: CHLORIDE 99 mEq/L (98-107)
[2020-12-06 06:34] LABS: BASOPHILS % 0.1 % (0.0-2.0); EOSINOPHILS % 0.7 % (0.0-5.0); HEMOGLOBIN. 9.4 g/dL (14.0-18.0); LYMPHOCYTES % 7.2 % (20.0-50.0); MEAN CORPUSCULAR HEMOGLOBIN 28.2 pg (28.0-32.0); MEAN CORPUSCULAR VOLUME 83.5 fL (80.0-94.0); MEAN PLATELET VOLUME 9.6 fl (7.4-10.4); PLATELET 459 x1000/uL (130-400); RED BLOOD CELL COUNT 3.35 mill/uL (4.7-6.1); RED CELL DISTRIBUTION WIDTH 14.3 % (11.6-14.6)
[2020-12-06] MEDS: DEXAMETHASONE 10 MG/ML VIAL IV SCH (09:09)
[2020-12-06] MEDS: FAMOTIDINE 20MG/2ML VIAL IV SCH ×2 (09:09→21:32)
[2020-12-06] MEDS: ASCORBIC ACID 500 MG TABLET PO SCH ×2 (09:09→21:32)
[2020-12-06 09:13] LABS: BG CARBOXYHEMOGLOBIN 0.3 % (0.5-1.5); BG DEOXYHEMOGLOBIN 2.4 % (0.0-5.0); BG FRACTION INSPIRED OXYGEN 70; BG HCO3 ACT 32.6 mmol/L (22.0-26.0); BG METHEMOGLOBIN 0.2 % (0.0-1.5); BG OXYGEN SATURATION 97.6 % (92.0-98.5); BG OXYHEMOGLOBIN 97.1 % (94.0-97.0); BG PCO2 45.9 mmHg (35.0-45.0); BG PH 7.469 (7.350-7.450); BG PO2 101.5 mmHg (75.0-100.0); BG SAMPLE SITE RIGHT RADIAL; BG TOTAL HEMOGLOBIN 10.7 g/dL (12.0-18.0); BG VENT MODE VENT - AC
[2020-12-06] MEDS: INSULIN GLARGINE UD 100 UNITS/ML SYR SUBCUT SCH (10:00)
[2020-12-06] MEDS: IPRATROPIUM BROMIDE (0.02%) 0.5MG/2.5ML NEB HHN SCH ×2 (10:10→21:12)
[2020-12-06] MEDS: DEXTROSE 5% WATER 1,000 ML IV SCH (12:03)
[2020-12-06] MEDS: METOCLOPRAMIDE HCL 10MG/2ML VIAL IV SCH ×2 (13:22→17:32)
[2020-12-06] MEDS: ACETAMINOPHEN 325MG TABLET PO PRN (21:32)
[2020-12-06] MEDS: ENOXAPARIN 40MG/0.4ML SYR SUBCUT SCH (21:32)
[2020-12-07] VITALS (88 sets, daily range): BP systolic 83–189; BP diastolic 48–119
[2020-12-07] MEDS: MIDAZOLAM HCL 100 MG in DEXT 5% WATER 80 ML IV PRN ×2 (01:22→15:30)
[2020-12-07] MEDS: DEXTROSE 5% WATER 1,000 ML IV SCH ×2 (01:22→15:42)
[2020-12-07] MEDS: METOCLOPRAMIDE HCL 10MG/2ML VIAL IV SCH ×4 (01:23→18:30)
[2020-12-07] MEDS: INSULIN LISPRO 100 UNITS/ML SUBCUT SCH ×4 (01:24→17:54)
[2020-12-07] MEDS: INSULIN GLARGINE UD 100 UNITS/ML SYR SUBCUT SCH ×3 (02:12→21:30)
[2020-12-07] MEDS: IPRATROPIUM BROMIDE (0.02%) 0.5MG/2.5ML NEB HHN SCH ×5 (03:53→21:08)
[2020-12-07] MEDS: BLOOD SUGAR DIAGNOSTIC STRIP TEST SCH ×4 (06:04→17:54)
[2020-12-07] MEDS: FENTANYL CITRATE/PF 2,500 MCG in SODIUM CHLORIDE 0.9% 200 ML IV PRN ×2 (08:45→16:24)
[2020-12-07 09:10] LABS: BG BASE EXCESS 5.4 mmol/L (-2.0-2.0); BG CARBOXYHEMOGLOBIN 0.1 % (0.5-1.5); BG DEOXYHEMOGLOBIN 1.2 % (0.0-5.0); BG FRACTION INSPIRED OXYGEN 60; BG HCO3 ACT 28.1 mmol/L (22.0-26.0); BG METHEMOGLOBIN 0.3 % (0.0-1.5); BG OXYGEN SATURATION 98.8 % (92.0-98.5); BG OXYHEMOGLOBIN 98.4 % (94.0-97.0); BG PCO2 34.3 mmHg (35.0-45.0); BG PH 7.532 (7.350-7.450); BG PO2 140.7 mmHg (75.0-100.0); BG SAMPLE SITE RIGHT RADIAL; BG TOTAL HEMOGLOBIN 10.3 g/dL (12.0-18.0); BG VENT MODE VENT - AC
[2020-12-07] MEDS: FAMOTIDINE 20MG/2ML VIAL IV SCH ×2 (09:26→21:27)
[2020-12-07] MEDS: ASCORBIC ACID 500 MG TABLET PO SCH ×2 (09:26→21:27)
[2020-12-07] MEDS: ACETAMINOPHEN 325MG TABLET PO PRN ×2 (10:54→21:38)
[2020-12-07 11:00] LABS: BASOPHILS % 0.4 % (0.0-2.0); HEMATOCRIT. 30.7 % (42.0-52.0); HEMOGLOBIN. 10.1 g/dL (14.0-18.0); LYMPHOCYTES % 9.7 % (20.0-50.0); MEAN CORPUSCULAR HEMOGLOBIN 27.8 pg (28.0-32.0); MEAN CORPUSCULAR VOLUME 84.4 fL (80.0-94.0); MEAN PLATELET VOLUME 9.3 fl (7.4-10.4); MONOCYTES % 3.3 % (2.0-8.0); NEUTROPHILS % 83.6 % (40.0-76.0); PLATELET 526 x1000/uL (130-400); RED BLOOD CELL COUNT 3.64 mill/uL (4.7-6.1); RED CELL DISTRIBUTION WIDTH 14.8 % (11.6-14.6)
[2020-12-07 11:14] LABS: CHLORIDE 99 mEq/L (98-107)
[2020-12-07] MEDS: QUETIAPINE FUMARATE 25MG TABLET PO SCH (13:43)
[2020-12-07] MEDS: NOREPINEPHRINE 8 MG in SODIUM CHLORIDE 0.9% 242 ML IV SCH (16:30)
[2020-12-07] MEDS: ENOXAPARIN 40MG/0.4ML SYR SUBCUT SCH (21:29)
[2020-12-08] VITALS (96 sets, daily range): BP systolic 91–169; BP diastolic 52–103
[2020-12-08] MEDS: BLOOD SUGAR DIAGNOSTIC STRIP TEST SCH ×4 (00:08→18:57)
[2020-12-08] MEDS: METOCLOPRAMIDE HCL 10MG/2ML VIAL IV SCH ×4 (00:18→18:57)
[2020-12-08] MEDS: MIDAZOLAM HCL 100 MG in DEXT 5% WATER 80 ML IV PRN ×3 (00:31→22:30)
[2020-12-08] MEDS: FENTANYL CITRATE/PF 2,500 MCG in SODIUM CHLORIDE 0.9% 200 ML IV PRN ×3 (02:07→19:18)
[2020-12-08] MEDS: IPRATROPIUM BROMIDE (0.02%) 0.5MG/2.5ML NEB HHN SCH ×5 (02:48→22:35)
[2020-12-08] MEDS: DEXTROSE 5% WATER 1,000 ML IV SCH (05:53)
[2020-12-08] MEDS: INSULIN LISPRO 100 UNITS/ML SUBCUT SCH ×4 (06:00→18:00)
[2020-12-08 06:08] LABS: BASOPHILS % 1.1 % (0.0-2.0); EOSINOPHILS % 4.8 % (0.0-5.0); HEMATOCRIT. 30.6 % (42.0-52.0); HEMOGLOBIN. 10.2 g/dL (14.0-18.0); LYMPHOCYTES % 12.5 % (20.0-50.0); MEAN CORPUSCULAR HEMOGLOBIN 28.4 pg (28.0-32.0); MEAN CORPUSCULAR VOLUME 85.7 fL (80.0-94.0); MEAN PLATELET VOLUME 10.4 fl (7.4-10.4); MONOCYTES % 4.3 % (2.0-8.0); NEUTROPHILS % 77.3 % (40.0-76.0); PLATELET 481 x1000/uL (130-400); RED BLOOD CELL COUNT 3.57 mill/uL (4.7-6.1); RED CELL DISTRIBUTION WIDTH 14.9 % (11.6-14.6)
[2020-12-08 06:19] LABS: CHLORIDE 100 mEq/L (98-107)
[2020-12-08] MEDS: QUETIAPINE FUMARATE 25MG TABLET PO SCH (08:42)
[2020-12-08] MEDS: FAMOTIDINE 20MG/2ML VIAL IV SCH ×2 (08:42→21:35)
[2020-12-08] MEDS: ACETAMINOPHEN 325MG TABLET PO PRN (08:42)
[2020-12-08] MEDS: ASCORBIC ACID 500 MG TABLET PO SCH ×2 (08:42→21:35)
[2020-12-08 08:52] LABS: BG BASE EXCESS 8.8 mmol/L (-2.0-2.0); BG CARBOXYHEMOGLOBIN 0.3 % (0.5-1.5); BG DEOXYHEMOGLOBIN 2.8 % (0.0-5.0); BG FRACTION INSPIRED OXYGEN 45; BG HCO3 ACT 34.2 mmol/L (22.0-26.0); BG METHEMOGLOBIN 0.1 % (0.0-1.5); BG OXYGEN SATURATION 97.2 % (92.0-98.5); BG OXYHEMOGLOBIN 96.8 % (94.0-97.0); BG PCO2 51.5 mmHg (35.0-45.0); BG PO2 93.7 mmHg (75.0-100.0); BG SAMPLE SITE RIGHT RADIAL; BG TOTAL HEMOGLOBIN 10.3 g/dL (12.0-18.0); BG VENT MODE VENT - AC
[2020-12-08] MEDS: INSULIN GLARGINE UD 100 UNITS/ML SYR SUBCUT SCH ×2 (10:18→22:00)
[2020-12-08] MEDS ORDERED: SODIUM POLYSTYRENE SULFONATE 15 G/60 ML BOT PO NR (11:00)
[2020-12-08] MEDS: ENOXAPARIN 40MG/0.4ML SYR SUBCUT SCH (21:35)
[2020-12-09] VITALS (82 sets, daily range): BP systolic 88–170; BP diastolic 51–102
[2020-12-09] MEDS: METOCLOPRAMIDE HCL 10MG/2ML VIAL IV SCH ×4 (00:29→17:56)
[2020-12-09] MEDS: BLOOD SUGAR DIAGNOSTIC STRIP TEST SCH ×4 (00:30→17:55)
[2020-12-09] MEDS: MIDAZOLAM HCL 100 MG in DEXT 5% WATER 80 ML IV PRN ×2 (00:30→19:52)
[2020-12-09] MEDS: ACETAMINOPHEN 325MG TABLET PO PRN ×3 (00:35→17:44)
[2020-12-09] MEDS: IPRATROPIUM BROMIDE (0.02%) 0.5MG/2.5ML NEB HHN SCH ×3 (02:55→20:39)
[2020-12-09] MEDS: FENTANYL CITRATE/PF 2,500 MCG in SODIUM CHLORIDE 0.9% 200 ML IV PRN ×2 (03:45→15:30)
[2020-12-09] MEDS: INSULIN LISPRO 100 UNITS/ML SUBCUT SCH ×4 (05:41→17:55)
[2020-12-09 08:17] LABS: BG CARBOXYHEMOGLOBIN 0.2 % (0.5-1.5); BG FRACTION INSPIRED OXYGEN 40; BG HCO3 ACT 30.5 mmol/L (22.0-26.0); BG METHEMOGLOBIN 0.3 % (0.0-1.5); BG OXYHEMOGLOBIN 98.5 % (94.0-97.0); BG PCO2 39.2 mmHg (35.0-45.0); BG PH 7.509 (7.350-7.450); BG PO2 160.4 mmHg (75.0-100.0); BG SAMPLE SITE RIGHT RADIAL; BG TOTAL HEMOGLOBIN 9.3 g/dL (12.0-18.0); BG VENT MODE VENT - AC
[2020-12-09] MEDS: FAMOTIDINE 20MG/2ML VIAL IV SCH ×2 (08:24→22:06)
[2020-12-09] MEDS: ASCORBIC ACID 500 MG TABLET PO SCH ×2 (08:24→22:05)
[2020-12-09] MEDS: QUETIAPINE FUMARATE 25MG TABLET PO SCH (08:24)
[2020-12-09 09:12] LABS: BASOPHILS % 0.5 % (0.0-2.0); EOSINOPHILS % 3.5 % (0.0-5.0); HEMOGLOBIN. 10.2 g/dL (14.0-18.0); MEAN CORPUSCULAR VOLUME 85.3 fL (80.0-94.0); MEAN PLATELET VOLUME 9.1 fl (7.4-10.4); MONOCYTES % 5.5 % (2.0-8.0); NEUTROPHILS % 80.5 % (40.0-76.0); PLATELET 475 x1000/uL (130-400); RED BLOOD CELL COUNT 3.64 mill/uL (4.7-6.1); RED CELL DISTRIBUTION WIDTH 14.9 % (11.6-14.6)
[2020-12-09 09:18] LABS: CHLORIDE 98 mEq/L (98-107)
[2020-12-09] MEDS: INSULIN GLARGINE UD 100 UNITS/ML SYR SUBCUT SCH ×2 (11:15→22:00)
[2020-12-09] MEDS ORDERED: SODIUM POLYSTYRENE SULFONATE 15 G/60 ML BOT PO SCH (13:00)
[2020-12-09 13:05] LABS: BG BASE EXCESS 7.8 mmol/L (-2.0-2.0); BG CARBOXYHEMOGLOBIN 0.3 % (0.5-1.5); BG DEOXYHEMOGLOBIN 4.8 % (0.0-5.0); BG FRACTION INSPIRED OXYGEN 40; BG HCO3 ACT 32.1 mmol/L (22.0-26.0); BG OXYGEN SATURATION 95.2 % (92.0-98.5); BG OXYHEMOGLOBIN 94.9 % (94.0-97.0); BG PCO2 44.1 mmHg (35.0-45.0); BG PO2 74.9 mmHg (75.0-100.0); BG SAMPLE SITE RIGHT BRACHIAL; BG TOTAL HEMOGLOBIN 10.2 g/dL (12.0-18.0); BG TOTAL RESPIRATORY RATE 29 b/min; BG VENT MODE VENT - SIMV
[2020-12-09] MEDS: ENOXAPARIN 40MG/0.4ML SYR SUBCUT SCH (22:07)
[2020-12-10] VITALS (86 sets, daily range): BP systolic 47–177; BP diastolic 27–145
[2020-12-10] MEDS: BLOOD SUGAR DIAGNOSTIC STRIP TEST SCH ×4 (00:32→18:00)
[2020-12-10] MEDS: METOCLOPRAMIDE HCL 10MG/2ML VIAL IV SCH ×4 (00:32→18:05)
[2020-12-10] MEDS: IPRATROPIUM BROMIDE (0.02%) 0.5MG/2.5ML NEB HHN SCH ×6 (00:38→20:43)
[2020-12-10] MEDS: FENTANYL CITRATE/PF 2,500 MCG in SODIUM CHLORIDE 0.9% 200 ML IV PRN ×3 (03:57→22:44)
[2020-12-10] MEDS: INSULIN LISPRO 100 UNITS/ML SUBCUT SCH ×4 (05:16→18:00)
[2020-12-10 07:44] LABS: BASOPHILS % 0.8 % (0.0-2.0); EOSINOPHILS % 3.3 % (0.0-5.0); HEMOGLOBIN. 8.9 g/dL (14.0-18.0); LYMPHOCYTES % 8.4 % (20.0-50.0); MEAN CORPUSCULAR VOLUME 85.1 fL (80.0-94.0); MEAN PLATELET VOLUME 9.2 fl (7.4-10.4); MONOCYTES % 4.2 % (2.0-8.0); NEUTROPHILS % 83.3 % (40.0-76.0); PLATELET 521 x1000/uL (130-400); RED BLOOD CELL COUNT 3.17 mill/uL (4.7-6.1); RED CELL DISTRIBUTION WIDTH 14.7 % (11.6-14.6)
[2020-12-10] MEDS: FAMOTIDINE 20MG/2ML VIAL IV SCH ×2 (08:23→22:27)
[2020-12-10] MEDS: QUETIAPINE FUMARATE 25MG TABLET PO SCH (08:23)
[2020-12-10] MEDS: ASCORBIC ACID 500 MG TABLET PO SCH ×2 (08:23→22:27)
[2020-12-10] MEDS: ACETAMINOPHEN 325MG TABLET PO PRN (08:24)
[2020-12-10 09:13] LABS: CHLORIDE 99 mEq/L (98-107)
[2020-12-10] MEDS: INSULIN GLARGINE UD 100 UNITS/ML SYR SUBCUT SCH ×2 (10:00→11:18)
[2020-12-10] MEDS: MIDAZOLAM HCL 100 MG in DEXT 5% WATER 80 ML IV PRN (13:45)
[2020-12-10 14:24] LABS: BG BASE EXCESS 6.3 mmol/L (-2.0-2.0); BG CARBOXYHEMOGLOBIN 0.3 % (0.5-1.5); BG DEOXYHEMOGLOBIN 1.5 % (0.0-5.0); BG FRACTION INSPIRED OXYGEN 70; BG HCO3 ACT 30.9 mmol/L (22.0-26.0); BG METHEMOGLOBIN 0.9 % (0.0-1.5); BG OXYGEN SATURATION 98.5 % (92.0-98.5); BG OXYHEMOGLOBIN 97.3 % (94.0-97.0); BG PCO2 45.2 mmHg (35.0-45.0); BG PH 7.453 (7.350-7.450); BG PO2 158.3 mmHg (75.0-100.0); BG SAMPLE SITE RIGHT RADIAL; BG TOTAL HEMOGLOBIN 8.8 g/dL (12.0-18.0); BG VENT MODE VENT - AC
[2020-12-10] MEDS ORDERED: PHENYLEPHRINE 100 MG in DEXT 5% WATER 240 ML IV PRN (18:00)
[2020-12-10] MEDS: CEFEPIME 2,000 MG in DEXT 5% WATER 100 ML IV SCH (22:27)
[2020-12-10] MEDS: ENOXAPARIN 40MG/0.4ML SYR SUBCUT SCH (22:28)
[2020-12-11] VITALS (47 sets, daily range): BP systolic 95–154; BP diastolic 54–86
[2020-12-11] MEDS: BLOOD SUGAR DIAGNOSTIC STRIP TEST SCH ×4 (00:23→18:46)
[2020-12-11] MEDS: METOCLOPRAMIDE HCL 10MG/2ML VIAL IV SCH ×4 (00:23→18:00)
[2020-12-11] MEDS: IPRATROPIUM BROMIDE (0.02%) 0.5MG/2.5ML NEB HHN SCH ×6 (01:33→20:48)
[2020-12-11] MEDS: MIDAZOLAM HCL 100 MG in DEXT 5% WATER 80 ML IV PRN (04:05)
[2020-12-11] MEDS: INSULIN LISPRO 100 UNITS/ML SUBCUT SCH ×4 (06:00→18:00)
[2020-12-11 06:13] LABS: BASOPHILS % 0.9 % (0.0-2.0); EOSINOPHILS % 7.1 % (0.0-5.0); HEMATOCRIT. 22.5 % (42.0-52.0); HEMOGLOBIN. 7.7 g/dL (14.0-18.0); LYMPHOCYTES % 11.5 % (20.0-50.0); MEAN CORPUSCULAR HEMOGLOBIN 28.8 pg (28.0-32.0); MEAN CORPUSCULAR VOLUME 84.5 fL (80.0-94.0); MEAN PLATELET VOLUME 8.9 fl (7.4-10.4); MONOCYTES % 5.7 % (2.0-8.0); NEUTROPHILS % 74.8 % (40.0-76.0); PLATELET 455 x1000/uL (130-400); RED BLOOD CELL COUNT 2.66 mill/uL (4.7-6.1); RED CELL DISTRIBUTION WIDTH 14.4 % (11.6-14.6)
[2020-12-11 06:30] LABS: CHLORIDE 100 mEq/L (98-107)
[2020-12-11] MEDS: CEFEPIME 2,000 MG in DEXT 5% WATER 100 ML IV SCH ×3 (06:40→21:33)
[2020-12-11] MEDS: FAMOTIDINE 20MG/2ML VIAL IV SCH ×2 (08:45→21:32)
[2020-12-11] MEDS: ACETAMINOPHEN 325MG TABLET PO PRN ×2 (08:45→16:14)
[2020-12-11] MEDS: ASCORBIC ACID 500 MG TABLET PO SCH ×2 (08:45→21:32)
[2020-12-11] MEDS: QUETIAPINE FUMARATE 25MG TABLET PO SCH ×2 (08:45→21:32)
[2020-12-11] MEDS ORDERED: MIDAZOLAM HCL 100 MG in DEXT 5% WATER 80 ML IV PRN (12:15)
[2020-12-11] MEDS ORDERED: FENTANYL CITRATE/PF 2,500 MCG in SODIUM CHLORIDE 0.9% 200 ML IV PRN (12:15)
[2020-12-11] MEDS: FENTANYL CITRATE/PF 2,500 MCG in SODIUM CHLORIDE 0.9% 200 ML IV PRN (13:30)
[2020-12-11] MEDS: ERGOCALCIFEROL 50000UNITS CAPSULE PO SCH (18:00)
[2020-12-11] MEDS: ENOXAPARIN 40MG/0.4ML SYR SUBCUT SCH (21:32)
[2020-12-12] VITALS (80 sets, daily range): BP systolic 95–208; BP diastolic 54–121
[2020-12-12] MEDS: METOCLOPRAMIDE HCL 10MG/2ML VIAL IV SCH ×4 (01:05→17:38)
[2020-12-12] MEDS: FENTANYL CITRATE/PF 2,500 MCG in SODIUM CHLORIDE 0.9% 200 ML IV PRN ×2 (01:31→11:32)
[2020-12-12] MEDS: MIDAZOLAM HCL 100 MG in DEXT 5% WATER 80 ML IV PRN ×2 (01:32→11:29)
[2020-12-12] MEDS: IPRATROPIUM BROMIDE (0.02%) 0.5MG/2.5ML NEB HHN SCH ×5 (03:55→20:22)
[2020-12-12] MEDS: INSULIN LISPRO 100 UNITS/ML SUBCUT SCH ×4 (06:00→17:37)
[2020-12-12] MEDS: CEFEPIME 2,000 MG in DEXT 5% WATER 100 ML IV SCH ×3 (06:12→22:35)
[2020-12-12] MEDS: BLOOD SUGAR DIAGNOSTIC STRIP TEST SCH ×4 (06:13→17:37)
[2020-12-12 06:46] LABS: CHLORIDE 97 mEq/L (98-107)
[2020-12-12 06:53] LABS: HEMATOCRIT. 23.4 % (42.0-52.0); HEMOGLOBIN. 7.9 g/dL (14.0-18.0); LYMPHOCYTES % 7.7 % (20.0-50.0); MEAN CORPUSCULAR HEMOGLOBIN 28.2 pg (28.0-32.0); MEAN CORPUSCULAR VOLUME 83.6 fL (80.0-94.0); MEAN PLATELET VOLUME 8.8 fl (7.4-10.4); MONOCYTES % 6.3 % (2.0-8.0); PLATELET 474 x1000/uL (130-400); RED CELL DISTRIBUTION WIDTH 14.5 % (11.6-14.6)
[2020-12-12] MEDS: FAMOTIDINE 20MG/2ML VIAL IV SCH ×2 (09:16→22:34)
[2020-12-12] MEDS: QUETIAPINE FUMARATE 25MG TABLET PO SCH ×2 (09:16→22:34)
[2020-12-12] MEDS: ACETAMINOPHEN 325MG TABLET PO PRN (09:16)
[2020-12-12] MEDS: ASCORBIC ACID 500 MG TABLET PO SCH ×2 (09:16→22:34)
[2020-12-12 15:39] LABS: BG BASE EXCESS 9.7 mmol/L (-2.0-2.0); BG CARBOXYHEMOGLOBIN 0.3 % (0.5-1.5); BG DEOXYHEMOGLOBIN 6.7 % (0.0-5.0); BG HCO3 ACT 35.8 mmol/L (22.0-26.0); BG METHEMOGLOBIN 0.3 % (0.0-1.5); BG OXYGEN SATURATION 93.3 % (92.0-98.5); BG OXYHEMOGLOBIN 92.7 % (94.0-97.0); BG PCO2 58.9 mmHg (35.0-45.0); BG PH 7.402 (7.350-7.450); BG PO2 71.9 mmHg (75.0-100.0); BG SAMPLE SITE RIGHT RADIAL; BG TOTAL HEMOGLOBIN 8.8 g/dL (12.0-18.0); BG VENT MODE VENT - AC
[2020-12-12] MEDS ORDERED: VANCOMYCIN 1 G PREMIX 200 ML IV SCH (18:00)
[2020-12-12] MEDS: ENOXAPARIN 40MG/0.4ML SYR SUBCUT SCH (22:35)
[2020-12-13] VITALS (90 sets, daily range): BP systolic 100–163; BP diastolic 55–81
[2020-12-13] MEDS: IPRATROPIUM BROMIDE (0.02%) 0.5MG/2.5ML NEB HHN SCH ×6 (00:49→20:28)
[2020-12-13] MEDS: METOCLOPRAMIDE HCL 10MG/2ML VIAL IV SCH ×4 (02:53→18:13)
[2020-12-13] MEDS: MIDAZOLAM HCL 100 MG in DEXT 5% WATER 80 ML IV PRN ×3 (03:02→23:20)
[2020-12-13] MEDS: FENTANYL CITRATE/PF 2,500 MCG in SODIUM CHLORIDE 0.9% 200 ML IV PRN ×2 (03:03→15:58)
[2020-12-13] MEDS ORDERED: VANCOMYCIN 500 MG PREMIX 100 ML IV SCH (06:00)
[2020-12-13] MEDS: BLOOD SUGAR DIAGNOSTIC STRIP TEST SCH ×4 (06:00→17:49)
[2020-12-13 06:02] LABS: BASOPHILS % 0.9 % (0.0-2.0); EOSINOPHILS % 6.6 % (0.0-5.0); HEMATOCRIT. 21.5 % (42.0-52.0); HEMOGLOBIN. 7.3 g/dL (14.0-18.0); LYMPHOCYTES % 8.8 % (20.0-50.0); MEAN CORPUSCULAR HEMOGLOBIN 28.5 pg (28.0-32.0); MEAN CORPUSCULAR VOLUME 83.8 fL (80.0-94.0); MEAN PLATELET VOLUME 8.7 fl (7.4-10.4); MONOCYTES % 7.1 % (2.0-8.0); NEUTROPHILS % 76.6 % (40.0-76.0); PLATELET 454 x1000/uL (130-400); RED BLOOD CELL COUNT 2.57 mill/uL (4.7-6.1); RED CELL DISTRIBUTION WIDTH 14.5 % (11.6-14.6)
[2020-12-13 06:08] LABS: CHLORIDE 97 mEq/L (98-107)
[2020-12-13] MEDS: CEFEPIME 2,000 MG in DEXT 5% WATER 100 ML IV SCH ×3 (07:14→22:47)
[2020-12-13] MEDS: INSULIN LISPRO 100 UNITS/ML SUBCUT SCH ×4 (07:16→17:49)
[2020-12-13] MEDS: FAMOTIDINE 20MG/2ML VIAL IV SCH ×2 (09:08→22:44)
[2020-12-13] MEDS: ASCORBIC ACID 500 MG TABLET PO SCH ×2 (09:08→22:45)
[2020-12-13] MEDS: QUETIAPINE FUMARATE 25MG TABLET PO SCH ×2 (09:08→22:46)
[2020-12-13] MEDS: ACETAMINOPHEN 325MG TABLET PO PRN (09:15)
[2020-12-13 11:14] LABS: BG BASE EXCESS 10.3 mmol/L (-2.0-2.0); BG DEOXYHEMOGLOBIN 2.6 % (0.0-5.0); BG FRACTION INSPIRED OXYGEN 55; BG HCO3 ACT 35.9 mmol/L (22.0-26.0); BG METHEMOGLOBIN 0.5 % (0.0-1.5); BG OXYGEN SATURATION 97.4 % (92.0-98.5); BG OXYHEMOGLOBIN 96.9 % (94.0-97.0); BG PCO2 55.4 mmHg (35.0-45.0); BG PH 7.429 (7.350-7.450); BG PO2 101.1 mmHg (75.0-100.0); BG SAMPLE SITE RIGHT RADIAL; BG VENT MODE VENT - AC
[2020-12-13] MEDS: DOCUSATE SODIUM SUGAR FREE 100MG/10ML UDC NG SCH ×2 (11:57→18:13)
[2020-12-13] MEDS ORDERED: VANCOMYCIN 750 MG PREMIX 150 ML IV SCH (13:00)
[2020-12-13] MEDS: LACTULOSE 20G/30ML UDC PO PRN (18:14)
[2020-12-13] MEDS: ENOXAPARIN 40MG/0.4ML SYR SUBCUT SCH (22:45)
[2020-12-14] VITALS (77 sets, daily range): BP systolic 94–169; BP diastolic 51–99
[2020-12-14] MEDS: BLOOD SUGAR DIAGNOSTIC STRIP TEST SCH ×4 (00:19→17:12)
[2020-12-14] MEDS: INSULIN LISPRO 100 UNITS/ML SUBCUT SCH ×4 (00:21→17:13)
[2020-12-14] MEDS: METOCLOPRAMIDE HCL 10MG/2ML VIAL IV SCH ×5 (00:24→23:53)
[2020-12-14] MEDS: NITROFURANTOIN 100MG M/M CAPSULE PO SCH ×3 (01:12→22:33)
[2020-12-14] MEDS: IPRATROPIUM BROMIDE (0.02%) 0.5MG/2.5ML NEB HHN SCH ×4 (02:30→20:43)
[2020-12-14] MEDS: FENTANYL CITRATE/PF 2,500 MCG in SODIUM CHLORIDE 0.9% 200 ML IV PRN ×2 (02:57→22:36)
[2020-12-14 06:13] LABS: BASOPHILS % 0.6 % (0.0-2.0); EOSINOPHILS % 7.8 % (0.0-5.0); HEMATOCRIT. 21.8 % (42.0-52.0); HEMOGLOBIN. 7.3 g/dL (14.0-18.0); LYMPHOCYTES % 9.2 % (20.0-50.0); MEAN CORPUSCULAR VOLUME 83.6 fL (80.0-94.0); MEAN PLATELET VOLUME 8.6 fl (7.4-10.4); MONOCYTES % 7.2 % (2.0-8.0); NEUTROPHILS % 75.2 % (40.0-76.0); PLATELET 454 x1000/uL (130-400); RED BLOOD CELL COUNT 2.61 mill/uL (4.7-6.1); RED CELL DISTRIBUTION WIDTH 14.9 % (11.6-14.6)
[2020-12-14 06:21] LABS: CHLORIDE 96 mEq/L (98-107)
[2020-12-14 06:26] LABS: PHOSPHORUS 3.2 mg/dL (2.5-4.9)
[2020-12-14] MEDS: CEFEPIME 2,000 MG in DEXT 5% WATER 100 ML IV SCH ×3 (06:51→22:34)
[2020-12-14] MEDS: QUETIAPINE FUMARATE 25MG TABLET PO SCH ×2 (08:54→22:33)
[2020-12-14] MEDS: ASCORBIC ACID 500 MG TABLET PO SCH ×2 (08:54→22:33)
[2020-12-14] MEDS: DOCUSATE SODIUM SUGAR FREE 100MG/10ML UDC NG SCH ×2 (08:54→17:24)
[2020-12-14] MEDS: FAMOTIDINE 20MG/2ML VIAL IV SCH ×2 (08:54→22:31)
[2020-12-14 10:41] LABS: BG BASE EXCESS 11.9 mmol/L (-2.0-2.0); BG CARBOXYHEMOGLOBIN 0.4 % (0.5-1.5); BG DEOXYHEMOGLOBIN 4.1 % (0.0-5.0); BG FRACTION INSPIRED OXYGEN 50; BG HCO3 ACT 37.3 mmol/L (22.0-26.0); BG METHEMOGLOBIN 0.4 % (0.0-1.5); BG OXYGEN SATURATION 95.9 % (92.0-98.5); BG OXYHEMOGLOBIN 95.1 % (94.0-97.0); BG PCO2 55.1 mmHg (35.0-45.0); BG PH 7.448 (7.350-7.450); BG PO2 82.5 mmHg (75.0-100.0); BG SAMPLE SITE RIGHT RADIAL; BG TOTAL HEMOGLOBIN 8.2 g/dL (12.0-18.0); BG VENT MODE VENT - AC
[2020-12-14] MEDS: MIDAZOLAM HCL 100 MG in DEXT 5% WATER 80 ML IV PRN (10:56)
[2020-12-14] MEDS: ACETAMINOPHEN 325MG TABLET PO PRN (12:33)
[2020-12-14] MEDS: ENOXAPARIN 40MG/0.4ML SYR SUBCUT SCH (22:32)
[2020-12-15] VITALS (77 sets, daily range): BP systolic 59–158; BP diastolic 37–94
[2020-12-15] MEDS: BLOOD SUGAR DIAGNOSTIC STRIP TEST SCH ×4 (00:15→17:20)
[2020-12-15] MEDS: IPRATROPIUM BROMIDE (0.02%) 0.5MG/2.5ML NEB HHN SCH ×6 (00:24→20:00)
[2020-12-15] MEDS: MIDAZOLAM HCL 100 MG in DEXT 5% WATER 80 ML IV PRN ×2 (04:35→17:53)
[2020-12-15] MEDS: METOCLOPRAMIDE HCL 10MG/2ML VIAL IV SCH ×3 (06:37→17:50)
[2020-12-15] MEDS: CEFEPIME 2,000 MG in DEXT 5% WATER 100 ML IV SCH ×3 (06:37→22:04)
[2020-12-15] MEDS: INSULIN LISPRO 100 UNITS/ML SUBCUT SCH ×4 (06:45→17:21)
[2020-12-15 06:47] LABS: BASOPHILS % 0.9 % (0.0-2.0); EOSINOPHILS % 10.4 % (0.0-5.0); HEMATOCRIT. 23.2 % (42.0-52.0); HEMOGLOBIN. 7.8 g/dL (14.0-18.0); LYMPHOCYTES % 13.1 % (20.0-50.0); MEAN CORPUSCULAR HEMOGLOBIN 28.2 pg (28.0-32.0); MEAN CORPUSCULAR VOLUME 83.6 fL (80.0-94.0); MEAN PLATELET VOLUME 8.6 fl (7.4-10.4); MONOCYTES % 7.8 % (2.0-8.0); NEUTROPHILS % 67.8 % (40.0-76.0); PLATELET 578 x1000/uL (130-400); RED BLOOD CELL COUNT 2.78 mill/uL (4.7-6.1); RED CELL DISTRIBUTION WIDTH 14.8 % (11.6-14.6)
[2020-12-15 06:54] LABS: CHLORIDE 95 mEq/L (98-107)
[2020-12-15] MEDS: QUETIAPINE FUMARATE 25MG TABLET PO SCH ×2 (09:27→22:02)
[2020-12-15] MEDS: NITROFURANTOIN 100MG M/M CAPSULE PO SCH ×2 (09:27→22:02)
[2020-12-15] MEDS: DOCUSATE SODIUM SUGAR FREE 100MG/10ML UDC NG SCH ×2 (09:27→17:50)
[2020-12-15] MEDS: ASCORBIC ACID 500 MG TABLET PO SCH ×2 (09:27→22:03)
[2020-12-15] MEDS: FAMOTIDINE 20MG/2ML VIAL IV SCH ×2 (09:28→22:04)
[2020-12-15] MEDS: ACETAMINOPHEN 325MG TABLET PO PRN (09:28)
[2020-12-15] MEDS: FENTANYL CITRATE/PF 2,500 MCG in SODIUM CHLORIDE 0.9% 200 ML IV PRN ×2 (09:36→18:19)
[2020-12-15 11:47] LABS: BG BASE EXCESS 16.1 mmol/L (-2.0-2.0); BG CARBOXYHEMOGLOBIN 0.1 % (0.5-1.5); BG DEOXYHEMOGLOBIN 1.9 % (0.0-5.0); BG HCO3 ACT 42.4 mmol/L (22.0-26.0); BG METHEMOGLOBIN 0.1 % (0.0-1.5); BG OXYGEN SATURATION 98.1 % (92.0-98.5); BG OXYHEMOGLOBIN 97.9 % (94.0-97.0); BG PCO2 65.6 mmHg (35.0-45.0); BG PH 7.428 (7.350-7.450)
[2020-12-15] MEDS: ENOXAPARIN 40MG/0.4ML SYR SUBCUT SCH (22:02)
[2020-12-16] VITALS (80 sets, daily range): BP systolic 123–178; BP diastolic 66–113
[2020-12-16] MEDS: METOCLOPRAMIDE HCL 10MG/2ML VIAL IV SCH ×4 (01:03→18:11)
[2020-12-16] MEDS: INSULIN LISPRO 100 UNITS/ML SUBCUT SCH ×4 (01:09→18:16)
[2020-12-16] MEDS: IPRATROPIUM BROMIDE (0.02%) 0.5MG/2.5ML NEB HHN SCH ×4 (02:43→20:43)
[2020-12-16] MEDS: BLOOD SUGAR DIAGNOSTIC STRIP TEST SCH ×4 (05:55→18:16)
[2020-12-16 06:11] LABS: BASOPHILS % 0.9 % (0.0-2.0); EOSINOPHILS % 9.8 % (0.0-5.0); HEMATOCRIT. 21.8 % (42.0-52.0); HEMOGLOBIN. 7.2 g/dL (14.0-18.0); LYMPHOCYTES % 10.3 % (20.0-50.0); MEAN CORPUSCULAR HEMOGLOBIN 27.7 pg (28.0-32.0); MEAN CORPUSCULAR VOLUME 83.7 fL (80.0-94.0); MEAN PLATELET VOLUME 8.7 fl (7.4-10.4); MONOCYTES % 9.4 % (2.0-8.0); NEUTROPHILS % 69.6 % (40.0-76.0); PLATELET 513 x1000/uL (130-400); RED CELL DISTRIBUTION WIDTH 15.2 % (11.6-14.6)
[2020-12-16 06:17] LABS: CHLORIDE 93 mEq/L (98-107)
[2020-12-16] MEDS: MIDAZOLAM 100MG/100ML PREMIX IV PRN ×2 (06:35→18:09)
[2020-12-16] MEDS: FENTANYL CITRATE/PF 2,500 MCG in SODIUM CHLORIDE 0.9% 200 ML IV PRN ×2 (06:37→18:10)
[2020-12-16] MEDS: QUETIAPINE FUMARATE 25MG TABLET PO SCH ×2 (08:22→21:46)
[2020-12-16] MEDS: ASCORBIC ACID 500 MG TABLET PO SCH ×2 (08:23→21:45)
[2020-12-16] MEDS: NITROFURANTOIN 100MG M/M CAPSULE PO SCH ×2 (08:23→21:45)
[2020-12-16] MEDS: DOCUSATE SODIUM SUGAR FREE 100MG/10ML UDC NG SCH ×2 (08:23→18:11)
[2020-12-16] MEDS: FAMOTIDINE 20MG/2ML VIAL IV SCH ×2 (08:24→21:47)
[2020-12-16 09:10] LABS: BG BASE EXCESS 14.3 mmol/L (-2.0-2.0); BG CARBOXYHEMOGLOBIN 0.3 % (0.5-1.5); BG DEOXYHEMOGLOBIN 0.6 % (0.0-5.0); BG FRACTION INSPIRED OXYGEN 50; BG HCO3 ACT 38.8 mmol/L (22.0-26.0); BG METHEMOGLOBIN 0.3 % (0.0-1.5); BG OXYGEN SATURATION 99.4 % (92.0-98.5); BG OXYHEMOGLOBIN 98.8 % (94.0-97.0); BG PCO2 48.2 mmHg (35.0-45.0); BG PH 7.524 (7.350-7.450); BG PO2 219.4 mmHg (75.0-100.0); BG SAMPLE SITE RIGHT RADIAL; BG TOTAL HEMOGLOBIN 11.1 g/dL (12.0-18.0); BG VENT MODE VENT - AC
[2020-12-16] MEDS: ENOXAPARIN 40MG/0.4ML SYR SUBCUT SCH (21:45)
[2020-12-16] MEDS ORDERED: METOPROLOL TARTRATE 5MG/5ML VIAL IV SCH (23:15)
[2020-12-17] VITALS (95 sets, daily range): BP systolic 76–175; BP diastolic 49–98
[2020-12-17] MEDS: METOCLOPRAMIDE HCL 10MG/2ML VIAL IV SCH ×4 (00:14→18:43)
[2020-12-17] MEDS: BLOOD SUGAR DIAGNOSTIC STRIP TEST SCH ×4 (00:14→18:44)
[2020-12-17] MEDS: INSULIN LISPRO 100 UNITS/ML SUBCUT SCH ×4 (00:17→18:00)
[2020-12-17] MEDS: IPRATROPIUM BROMIDE (0.02%) 0.5MG/2.5ML NEB HHN SCH ×6 (00:17→20:43)
[2020-12-17 05:35] LABS: CHLORIDE 92 mEq/L (98-107)
[2020-12-17 05:40] LABS: BASOPHILS % 0.6 % (0.0-2.0); LYMPHOCYTES % 8.6 % (20.0-50.0); MEAN CORPUSCULAR HEMOGLOBIN 27.9 pg (28.0-32.0); MEAN CORPUSCULAR VOLUME 83.4 fL (80.0-94.0); MEAN PLATELET VOLUME 8.4 fl (7.4-10.4); MONOCYTES % 9.7 % (2.0-8.0); NEUTROPHILS % 78.1 % (40.0-76.0); PLATELET 493 x1000/uL (130-400); RED BLOOD CELL COUNT 2.44 mill/uL (4.7-6.1); RED CELL DISTRIBUTION WIDTH 15.1 % (11.6-14.6)
[2020-12-17] MEDS: MIDAZOLAM 100MG/100ML PREMIX IV PRN ×2 (06:11→20:03)
[2020-12-17 07:04] LABS: HEMATOCRIT. 20.4 % (42.0-52.0); HEMOGLOBIN. 6.8 g/dL (14.0-18.0)
[2020-12-17 08:18] LABS: BG BASE EXCESS 12.3 mmol/L (-2.0-2.0); BG CARBOXYHEMOGLOBIN 0.1 % (0.5-1.5); BG DEOXYHEMOGLOBIN 4.7 % (0.0-5.0); BG FRACTION INSPIRED OXYGEN 40; BG HCO3 ACT 39.3 mmol/L (22.0-26.0); BG METHEMOGLOBIN 0.3 % (0.0-1.5); BG OXYGEN SATURATION 95.3 % (92.0-98.5); BG OXYHEMOGLOBIN 94.9 % (94.0-97.0); BG PCO2 72.5 mmHg (35.0-45.0); BG PH 7.352 (7.350-7.450); BG PO2 85.8 mmHg (75.0-100.0); BG SAMPLE SITE RIGHT RADIAL; BG VENT MODE VENT - AC
[2020-12-17] MEDS: NITROFURANTOIN 100MG M/M CAPSULE PO SCH ×2 (08:58→20:24)
[2020-12-17] MEDS: ASCORBIC ACID 500 MG TABLET PO SCH ×2 (08:58→20:24)
[2020-12-17] MEDS: DOCUSATE SODIUM SUGAR FREE 100MG/10ML UDC NG SCH ×2 (08:58→17:00)
[2020-12-17] MEDS: QUETIAPINE FUMARATE 25MG TABLET PO SCH ×2 (08:58→20:24)
[2020-12-17] MEDS: FAMOTIDINE 20MG/2ML VIAL IV SCH ×2 (08:59→20:24)
[2020-12-17] MEDS: ACETAMINOPHEN 325MG TABLET PO PRN (13:09)
[2020-12-17] MEDS: FENTANYL CITRATE/PF 2,500 MCG in SODIUM CHLORIDE 0.9% 200 ML IV PRN ×2 (13:19→21:23)
[2020-12-17] MEDS: ENOXAPARIN 40MG/0.4ML SYR SUBCUT SCH (20:25)
[2020-12-18] VITALS (48 sets, daily range): BP systolic 102–139; BP diastolic 56–84
[2020-12-18] MEDS: METOCLOPRAMIDE HCL 10MG/2ML VIAL IV SCH ×4 (00:07→17:29)
[2020-12-18] MEDS: INSULIN LISPRO 100 UNITS/ML SUBCUT SCH ×4 (00:09→17:25)
[2020-12-18 02:35] LABS: HEMATOCRIT 24.2 % (42.0-52.0)
[2020-12-18] MEDS: IPRATROPIUM BROMIDE (0.02%) 0.5MG/2.5ML NEB HHN SCH ×5 (02:44→20:55)
[2020-12-18] MEDS: ACETAMINOPHEN 325MG TABLET PO PRN ×2 (05:18→17:29)
[2020-12-18] MEDS: BLOOD SUGAR DIAGNOSTIC STRIP TEST SCH ×5 (05:53→23:41)
[2020-12-18 06:47] LABS: BASOPHILS % 0.8 % (0.0-2.0); CHLORIDE 93 mEq/L (98-107); HEMATOCRIT. 23.5 % (42.0-52.0); LYMPHOCYTES % 12.3 % (20.0-50.0); MEAN CORPUSCULAR HEMOGLOBIN 28.5 pg (28.0-32.0); MEAN CORPUSCULAR VOLUME 83.5 fL (80.0-94.0); MEAN PLATELET VOLUME 8.2 fl (7.4-10.4); MONOCYTES % 11.6 % (2.0-8.0); NEUTROPHILS % 64.3 % (40.0-76.0); PLATELET 462 x1000/uL (130-400); RED BLOOD CELL COUNT 2.81 mill/uL (4.7-6.1)
[2020-12-18] MEDS: ASCORBIC ACID 500 MG TABLET PO SCH ×2 (08:37→21:48)
[2020-12-18] MEDS: DOCUSATE SODIUM SUGAR FREE 100MG/10ML UDC NG SCH ×2 (08:38→17:24)
[2020-12-18] MEDS: NITROFURANTOIN 100MG M/M CAPSULE PO SCH (08:38)
[2020-12-18] MEDS: QUETIAPINE FUMARATE 25MG TABLET PO SCH ×2 (08:38→21:48)
[2020-12-18] MEDS: FAMOTIDINE 20MG/2ML VIAL IV SCH ×2 (08:47→21:48)
[2020-12-18] MEDS: MIDAZOLAM 100MG/100ML PREMIX IV PRN (09:24)
[2020-12-18 10:38] LABS: BG BASE EXCESS 14.7 mmol/L (-2.0-2.0); BG CARBOXYHEMOGLOBIN 0.1 % (0.5-1.5); BG DEOXYHEMOGLOBIN 3.3 % (0.0-5.0); BG FRACTION INSPIRED OXYGEN 40; BG HCO3 ACT 39.6 mmol/L (22.0-26.0); BG METHEMOGLOBIN 0.4 % (0.0-1.5); BG OXYGEN SATURATION 96.7 % (92.0-98.5); BG OXYHEMOGLOBIN 96.2 % (94.0-97.0); BG PCO2 53.2 mmHg (35.0-45.0); BG PO2 89.1 mmHg (75.0-100.0); BG SAMPLE SITE RIGHT RADIAL; BG TOTAL HEMOGLOBIN 8.4 g/dL (12.0-18.0); BG VENT MODE VENT - AC
[2020-12-18] MEDS: FENTANYL CITRATE/PF 2,500 MCG in SODIUM CHLORIDE 0.9% 200 ML IV PRN (13:17)
[2020-12-18] MEDS: ENOXAPARIN 40MG/0.4ML SYR SUBCUT SCH (21:49)
[2020-12-18] MEDS: ERGOCALCIFEROL 50000UNITS CAPSULE PO SCH (21:50)
[2020-12-19] VITALS (48 sets, daily range): BP systolic 109–170; BP diastolic 66–85
[2020-12-19] MEDS: ACETAMINOPHEN 325MG TABLET PO PRN ×2 (00:27→08:54)
[2020-12-19] MEDS: METOCLOPRAMIDE HCL 10MG/2ML VIAL IV SCH ×4 (00:43→18:05)
[2020-12-19] MEDS: MIDAZOLAM 100MG/100ML PREMIX IV PRN ×2 (01:54→14:14)
[2020-12-19] MEDS: IPRATROPIUM BROMIDE (0.02%) 0.5MG/2.5ML NEB HHN SCH ×5 (04:30→20:35)
[2020-12-19] MEDS: INSULIN LISPRO 100 UNITS/ML SUBCUT SCH ×4 (06:00→17:43)
[2020-12-19] MEDS: BLOOD SUGAR DIAGNOSTIC STRIP TEST SCH ×3 (06:00→17:43)
[2020-12-19] MEDS: FENTANYL CITRATE/PF 2,500 MCG in SODIUM CHLORIDE 0.9% 200 ML IV PRN ×2 (07:14→19:01)
[2020-12-19] MEDS: CLONIDINE 0.1MG TABLET PO PRN (08:53)
[2020-12-19] MEDS: QUETIAPINE FUMARATE 25MG TABLET PO SCH ×2 (08:53→21:25)
[2020-12-19] MEDS: ASCORBIC ACID 500 MG TABLET PO SCH ×2 (08:53→21:24)
[2020-12-19] MEDS: FAMOTIDINE 20MG/2ML VIAL IV SCH ×2 (08:53→21:25)
[2020-12-19] MEDS: DOCUSATE SODIUM SUGAR FREE 100MG/10ML UDC NG SCH ×2 (08:53→18:05)
[2020-12-19 10:08] LABS: BG BASE EXCESS 10.5 mmol/L (-2.0-2.0); BG DEOXYHEMOGLOBIN 2.3 % (0.0-5.0); BG FRACTION INSPIRED OXYGEN 40; BG HCO3 ACT 35.6 mmol/L (22.0-26.0); BG METHEMOGLOBIN 0.3 % (0.0-1.5); BG OXYGEN SATURATION 97.7 % (92.0-98.5); BG OXYHEMOGLOBIN 97.4 % (94.0-97.0); BG PCO2 50.6 mmHg (35.0-45.0); BG PH 7.465 (7.350-7.450); BG PO2 102.5 mmHg (75.0-100.0); BG SAMPLE SITE RIGHT RADIAL; BG TOTAL HEMOGLOBIN 9.6 g/dL (12.0-18.0); BG TOTAL RESPIRATORY RATE 35 b/min; BG VENT MODE VENT - AC
[2020-12-19 10:40] LABS: BASOPHILS % 0.7 % (0.0-2.0); HEMATOCRIT. 25.1 % (42.0-52.0); HEMOGLOBIN. 8.4 g/dL (14.0-18.0); LYMPHOCYTES % 8.1 % (20.0-50.0); MEAN CORPUSCULAR HEMOGLOBIN 28.2 pg (28.0-32.0); MEAN CORPUSCULAR VOLUME 84.1 fL (80.0-94.0); MEAN PLATELET VOLUME 8.1 fl (7.4-10.4); MONOCYTES % 9.3 % (2.0-8.0); NEUTROPHILS % 72.9 % (40.0-76.0); PLATELET 493 x1000/uL (130-400); RED BLOOD CELL COUNT 2.98 mill/uL (4.7-6.1); RED CELL DISTRIBUTION WIDTH 15.2 % (11.6-14.6)
[2020-12-19 10:44] LABS: CHLORIDE 94 mEq/L (98-107)
[2020-12-19 10:49] LABS: PHOSPHORUS 4.5 mg/dL (2.5-4.9)
[2020-12-19] MEDS: LACTULOSE 20G/30ML UDC PO PRN (12:51)
[2020-12-19] MEDS: ENOXAPARIN 40MG/0.4ML SYR SUBCUT SCH (21:26)
[2020-12-20] VITALS (44 sets, daily range): BP systolic 116–169; BP diastolic 67–86
[2020-12-20] MEDS: INSULIN LISPRO 100 UNITS/ML SUBCUT SCH ×5 (00:27→23:25)
[2020-12-20] MEDS: METOCLOPRAMIDE HCL 10MG/2ML VIAL IV SCH ×3 (00:28→12:41)
[2020-12-20] MEDS: MIDAZOLAM 100MG/100ML PREMIX IV PRN ×2 (01:11→11:26)
[2020-12-20] MEDS: IPRATROPIUM BROMIDE (0.02%) 0.5MG/2.5ML NEB HHN SCH ×4 (03:05→20:22)
[2020-12-20 05:36] LABS: BASOPHILS % 0.8 % (0.0-2.0); EOSINOPHILS % 12.9 % (0.0-5.0); HEMATOCRIT. 26.4 % (42.0-52.0); HEMOGLOBIN. 8.8 g/dL (14.0-18.0); MEAN PLATELET VOLUME 7.8 fl (7.4-10.4); MONOCYTES % 11.6 % (2.0-8.0); NEUTROPHILS % 61.7 % (40.0-76.0); PLATELET 567 x1000/uL (130-400); RED BLOOD CELL COUNT 3.15 mill/uL (4.7-6.1); RED CELL DISTRIBUTION WIDTH 15.3 % (11.6-14.6)
[2020-12-20 05:47] LABS: CHLORIDE 94 mEq/L (98-107)
[2020-12-20] MEDS: BLOOD SUGAR DIAGNOSTIC STRIP TEST SCH ×5 (06:00→23:11)
[2020-12-20] MEDS: ASCORBIC ACID 500 MG TABLET PO SCH ×2 (08:32→21:23)
[2020-12-20] MEDS: QUETIAPINE FUMARATE 25MG TABLET PO SCH ×2 (08:32→21:23)
[2020-12-20] MEDS: DOCUSATE SODIUM SUGAR FREE 100MG/10ML UDC NG SCH ×2 (08:33→17:08)
[2020-12-20] MEDS: FAMOTIDINE 20MG/2ML VIAL IV SCH ×2 (08:34→21:25)
[2020-12-20] MEDS: ACETAMINOPHEN 325MG TABLET PO PRN (08:53)
[2020-12-20 09:33] LABS: BG BASE EXCESS 10.1 mmol/L (-2.0-2.0); BG CARBOXYHEMOGLOBIN 0.7 % (0.5-1.5); BG FRACTION INSPIRED OXYGEN 40; BG HCO3 ACT 35.7 mmol/L (22.0-26.0); BG METHEMOGLOBIN 0.6 % (0.0-1.5); BG OXYHEMOGLOBIN 96.7 % (94.0-97.0); BG PCO2 54.9 mmHg (35.0-45.0); BG PH 7.431 (7.350-7.450); BG PO2 109.7 mmHg (75.0-100.0); BG SAMPLE SITE RIGHT RADIAL; BG TOTAL HEMOGLOBIN 8.9 g/dL (12.0-18.0); BG VENT MODE VENT - AC
[2020-12-20] MEDS: FENTANYL CITRATE/PF 2,500 MCG in SODIUM CHLORIDE 0.9% 200 ML IV PRN (09:56)
[2020-12-20] MEDS: CLONIDINE 0.1MG TABLET PO PRN (17:08)
[2020-12-20] MEDS: ENOXAPARIN 40MG/0.4ML SYR SUBCUT SCH (21:25)
[2020-12-21] VITALS (80 sets, daily range): BP systolic 87–157; BP diastolic 58–85
[2020-12-21] MEDS: MIDAZOLAM 100MG/100ML PREMIX IV PRN (00:02)
[2020-12-21] MEDS: FENTANYL CITRATE/PF 2,500 MCG in SODIUM CHLORIDE 0.9% 200 ML IV PRN ×3 (01:06→22:10)
[2020-12-21] MEDS: INSULIN LISPRO 100 UNITS/ML SUBCUT SCH ×4 (06:00→23:44)
[2020-12-21] MEDS: METOCLOPRAMIDE HCL 10MG/2ML VIAL IV SCH ×4 (06:00→23:48)
[2020-12-21] MEDS: BLOOD SUGAR DIAGNOSTIC STRIP TEST SCH ×4 (06:29→23:42)
[2020-12-21 07:30] LABS: CHLORIDE 95 mEq/L (98-107)
[2020-12-21 07:58] LABS: BASOPHILS % 1.1 % (0.0-2.0); EOSINOPHILS % 6.2 % (0.0-5.0); HEMATOCRIT. 26.2 % (42.0-52.0); HEMOGLOBIN. 8.6 g/dL (14.0-18.0); LYMPHOCYTES % 14.3 % (20.0-50.0); MEAN CORPUSCULAR VOLUME 84.6 fL (80.0-94.0); MEAN PLATELET VOLUME 8.6 fl (7.4-10.4); MONOCYTES % 10.8 % (2.0-8.0); NEUTROPHILS % 67.6 % (40.0-76.0); PLATELET 595 x1000/uL (130-400); RED BLOOD CELL COUNT 3.09 mill/uL (4.7-6.1); RED CELL DISTRIBUTION WIDTH 15.3 % (11.6-14.6)
[2020-12-21 09:38] LABS: BG BASE EXCESS 11.8 mmol/L (-2.0-2.0); BG CARBOXYHEMOGLOBIN 0.6 % (0.5-1.5); BG FRACTION INSPIRED OXYGEN 40; BG METHEMOGLOBIN 0.2 % (0.0-1.5); BG OXYHEMOGLOBIN 97.2 % (94.0-97.0); BG PH 7.419 (7.350-7.450); BG PO2 120.2 mmHg (75.0-100.0); BG SAMPLE SITE LEFT BRACHIAL; BG TOTAL HEMOGLOBIN 9.2 g/dL (12.0-18.0); BG TOTAL RESPIRATORY RATE 32 b/min; BG VENT MODE VENT - AC
[2020-12-21] MEDS: DOCUSATE SODIUM SUGAR FREE 100MG/10ML UDC NG SCH ×2 (09:41→18:19)
[2020-12-21] MEDS: FAMOTIDINE 20MG/2ML VIAL IV SCH ×2 (09:41→22:26)
[2020-12-21] MEDS: ASCORBIC ACID 500 MG TABLET PO SCH ×2 (09:41→22:27)
[2020-12-21] MEDS: QUETIAPINE FUMARATE 25MG TABLET PO SCH ×2 (09:41→22:27)
[2020-12-21] MEDS: MIDAZOLAM 100MG/100ML PMX 100 ML IV PRN ×3 (09:43→22:12)
[2020-12-21] MEDS: ALBUTEROL (0.083%) 2.5MG/3ML NEB HHN SCH (21:53)
[2020-12-21] MEDS: ENOXAPARIN 40MG/0.4ML SYR SUBCUT SCH (22:27)
[2020-12-22] VITALS (96 sets, daily range): BP systolic 89–153; BP diastolic 54–78
[2020-12-22] MEDS: ALBUTEROL (0.083%) 2.5MG/3ML NEB HHN SCH ×4 (03:16→20:31)
[2020-12-22 05:42] LABS: EOSINOPHILS % 9.7 % (0.0-5.0); HEMATOCRIT. 24.3 % (42.0-52.0); HEMOGLOBIN. 7.9 g/dL (14.0-18.0); LYMPHOCYTES % 17.1 % (20.0-50.0); MEAN CORPUSCULAR HEMOGLOBIN 27.6 pg (28.0-32.0); MEAN CORPUSCULAR VOLUME 84.5 fL (80.0-94.0); MEAN PLATELET VOLUME 8.5 fl (7.4-10.4); MONOCYTES % 10.6 % (2.0-8.0); NEUTROPHILS % 61.6 % (40.0-76.0); PLATELET 574 x1000/uL (130-400); RED BLOOD CELL COUNT 2.87 mill/uL (4.7-6.1); RED CELL DISTRIBUTION WIDTH 15.4 % (11.6-14.6)
[2020-12-22 05:51] LABS: CHLORIDE 95 mEq/L (98-107)
[2020-12-22] MEDS: INSULIN LISPRO 100 UNITS/ML SUBCUT SCH ×3 (06:00→17:48)
[2020-12-22] MEDS: BLOOD SUGAR DIAGNOSTIC STRIP TEST SCH ×3 (06:00→17:35)
[2020-12-22] MEDS: METOCLOPRAMIDE HCL 10MG/2ML VIAL IV SCH ×3 (07:07→17:48)
[2020-12-22] MEDS: MIDAZOLAM 100MG/100ML PMX 100 ML IV PRN ×3 (07:09→22:15)
[2020-12-22] MEDS: FENTANYL CITRATE/PF 2,500 MCG in SODIUM CHLORIDE 0.9% 200 ML IV PRN ×2 (07:36→16:34)
[2020-12-22] MEDS ORDERED: LIDOCAINE HCL 1% 20ML VIAL (Pyxis) INJ ONE (07:59)
[2020-12-22] MEDS ORDERED: SODIUM BICARBONATE 4% (2.4MEQ) 5ML VIAL IV ONE (07:59)
[2020-12-22] MEDS: QUETIAPINE FUMARATE 25MG TABLET PO SCH ×2 (08:57→21:14)
[2020-12-22] MEDS: ASCORBIC ACID 500 MG TABLET PO SCH ×2 (08:57→21:14)
[2020-12-22] MEDS: FAMOTIDINE 20MG/2ML VIAL IV SCH ×2 (08:57→21:14)
[2020-12-22] MEDS: DOCUSATE SODIUM SUGAR FREE 100MG/10ML UDC NG SCH ×2 (08:57→17:49)
[2020-12-22 10:55] LABS: BG BASE EXCESS 10.8 mmol/L (-2.0-2.0); BG CARBOXYHEMOGLOBIN 0.5 % (0.5-1.5); BG DEOXYHEMOGLOBIN 2.6 % (0.0-5.0); BG FRACTION INSPIRED OXYGEN 40; BG HCO3 ACT 36.1 mmol/L (22.0-26.0); BG METHEMOGLOBIN 0.3 % (0.0-1.5); BG OXYGEN SATURATION 97.4 % (92.0-98.5); BG OXYHEMOGLOBIN 96.6 % (94.0-97.0); BG PCO2 55.6 mmHg (35.0-45.0); BG PO2 93.7 mmHg (75.0-100.0); BG SAMPLE SITE LEFT RADIAL; BG TOTAL HEMOGLOBIN 6.1 g/dL (12.0-18.0); BG VENT MODE VENT - AC
[2020-12-22] MEDS: ENOXAPARIN 40MG/0.4ML SYR SUBCUT SCH (21:14)
[2020-12-23] VITALS (83 sets, daily range): BP systolic 112–158; BP diastolic 59–84
[2020-12-23] MEDS: ALBUTEROL (0.083%) 2.5MG/3ML NEB HHN SCH ×5 (00:55→20:55)
[2020-12-23] MEDS: METOCLOPRAMIDE HCL 10MG/2ML VIAL IV SCH ×4 (01:12→18:41)
[2020-12-23] MEDS: FENTANYL CITRATE/PF 2,500 MCG in SODIUM CHLORIDE 0.9% 200 ML IV PRN ×2 (01:14→14:36)
[2020-12-23 05:44] LABS: BASOPHILS % 0.7 % (0.0-2.0); EOSINOPHILS % 10.3 % (0.0-5.0); HEMATOCRIT. 23.9 % (42.0-52.0); LYMPHOCYTES % 14.8 % (20.0-50.0); MEAN CORPUSCULAR HEMOGLOBIN 27.9 pg (28.0-32.0); MEAN CORPUSCULAR VOLUME 83.4 fL (80.0-94.0); MEAN PLATELET VOLUME 8.6 fl (7.4-10.4); MONOCYTES % 9.4 % (2.0-8.0); NEUTROPHILS % 64.8 % (40.0-76.0); PLATELET 618 x1000/uL (130-400); RED BLOOD CELL COUNT 2.87 mill/uL (4.7-6.1); RED CELL DISTRIBUTION WIDTH 15.7 % (11.6-14.6)
[2020-12-23] MEDS: BLOOD SUGAR DIAGNOSTIC STRIP TEST SCH ×4 (05:49→18:43)
[2020-12-23 05:50] LABS: INR 1.1; PROTHROMBIN TIME 11.9 sec (9.6-11.0)
[2020-12-23] MEDS: INSULIN LISPRO 100 UNITS/ML SUBCUT SCH ×4 (05:50→18:42)
[2020-12-23 05:53] LABS: CHLORIDE 93 mEq/L (98-107)
[2020-12-23] MEDS: MIDAZOLAM 100MG/100ML PMX 100 ML IV PRN ×2 (06:22→21:34)
[2020-12-23 08:54] LABS: BG BASE EXCESS 11.3 mmol/L (-2.0-2.0); BG CARBOXYHEMOGLOBIN 0.9 % (0.5-1.5); BG DEOXYHEMOGLOBIN 3.3 % (0.0-5.0); BG FRACTION INSPIRED OXYGEN 35; BG HCO3 ACT 37.1 mmol/L (22.0-26.0); BG METHEMOGLOBIN 0.4 % (0.0-1.5); BG OXYGEN SATURATION 96.7 % (92.0-98.5); BG OXYHEMOGLOBIN 95.4 % (94.0-97.0); BG PCO2 57.3 mmHg (35.0-45.0); BG PH 7.429 (7.350-7.450); BG PO2 90.5 mmHg (75.0-100.0); BG SAMPLE SITE RIGHT RADIAL; BG TOTAL HEMOGLOBIN 8.7 g/dL (12.0-18.0); BG VENT MODE VENT - AC
[2020-12-23] MEDS: QUETIAPINE FUMARATE 25MG TABLET PO SCH ×2 (09:51→21:34)
[2020-12-23] MEDS: ASCORBIC ACID 500 MG TABLET PO SCH ×2 (09:51→21:34)
[2020-12-23] MEDS: LACTULOSE 20G/30ML UDC PO PRN (09:51)
[2020-12-23] MEDS: DOCUSATE SODIUM SUGAR FREE 100MG/10ML UDC NG SCH ×2 (09:51→18:41)
[2020-12-23] MEDS: FAMOTIDINE 20MG/2ML VIAL IV SCH ×3 (09:52→21:34)
[2020-12-23] MEDS ORDERED: MIDAZOLAM HCL 2 MG/2 ML VIAL ONE (13:44)
[2020-12-23] MEDS ORDERED: CEFAZOLIN SODIUM 1000MG/VIAL ONE (13:48)
[2020-12-23] MEDS: ACETAMINOPHEN 650MG/20.3ML UDC PO PRN (14:56)
[2020-12-23] MEDS ORDERED: CEFTRIAXONE 1,000 MG in DEXTROSE 5% WATER 50 ML IV SCH (16:00)
[2020-12-24] VITALS (94 sets, daily range): BP systolic 104–182; BP diastolic 54–100
[2020-12-24] MEDS: METOCLOPRAMIDE HCL 10MG/2ML VIAL IV SCH ×4 (00:23→17:47)
[2020-12-24] MEDS: BLOOD SUGAR DIAGNOSTIC STRIP TEST SCH ×4 (00:24→17:44)
[2020-12-24] MEDS: INSULIN LISPRO 100 UNITS/ML SUBCUT SCH ×4 (00:25→17:48)
[2020-12-24] MEDS: ALBUTEROL (0.083%) 2.5MG/3ML NEB HHN SCH ×4 (02:48→21:14)
[2020-12-24] MEDS: ACETAMINOPHEN 650MG/20.3ML UDC PO PRN ×4 (05:14→17:40)
[2020-12-24] MEDS: FENTANYL CITRATE/PF 2,500 MCG in SODIUM CHLORIDE 0.9% 200 ML IV PRN ×2 (07:20→19:03)
[2020-12-24] MEDS: LACTULOSE 20G/30ML UDC PO PRN (08:01)
[2020-12-24] MEDS: DOCUSATE SODIUM SUGAR FREE 100MG/10ML UDC NG SCH ×2 (08:01→17:47)
[2020-12-24] MEDS: FAMOTIDINE 20MG/2ML VIAL IV SCH ×2 (08:02→21:31)
[2020-12-24] MEDS: QUETIAPINE FUMARATE 25MG TABLET PO SCH ×2 (08:02→21:29)
[2020-12-24] MEDS: ASCORBIC ACID 500 MG TABLET PO SCH ×2 (08:02→21:29)
[2020-12-24 09:09] LABS: BG BASE EXCESS 15.4 mmol/L (-2.0-2.0); BG FRACTION INSPIRED OXYGEN 35; BG HCO3 ACT 40.3 mmol/L (22.0-26.0); BG PCO2 48.4 mmHg (35.0-45.0); BG PH 7.538 (7.350-7.450); BG PO2 126.3 mmHg (75.0-100.0); BG SAMPLE SITE RIGHT RADIAL; BG VENT MODE VENT - AC
[2020-12-24] MEDS: MIDAZOLAM 100MG/100ML PMX 100 ML IV PRN ×2 (11:30→21:28)
[2020-12-24] MEDS: METOPROLOL TARTRATE 25MG TABLET PO SCH ×2 (15:24→21:29)
[2020-12-25] VITALS (93 sets, daily range): BP systolic 110–204; BP diastolic 57–106
[2020-12-25] MEDS: ACETAMINOPHEN 650MG/20.3ML UDC PO PRN ×2 (00:32→08:17)
[2020-12-25] MEDS: BLOOD SUGAR DIAGNOSTIC STRIP TEST SCH ×4 (00:53→17:28)
[2020-12-25] MEDS: METOCLOPRAMIDE HCL 10MG/2ML VIAL IV SCH ×4 (01:07→17:59)
[2020-12-25] MEDS: INSULIN LISPRO 100 UNITS/ML SUBCUT SCH ×4 (01:08→17:27)
[2020-12-25] MEDS: ALBUTEROL (0.083%) 2.5MG/3ML NEB HHN SCH ×4 (01:42→20:50)
[2020-12-25 06:06] LABS: CHLORIDE 96 mEq/L (98-107)
[2020-12-25 06:11] LABS: HEMOGLOBIN 7.7 g/dL (14.0-18.0); MEAN CORPUSCULAR HEMOGLOBIN 27.1 pg (28.0-32.0); MEAN CORPUSCULAR VOLUME 84.3 fL (80.0-94.0); PLATELET 530 x1000/uL (130-400); RED BLOOD CELL COUNT 2.85 mill/uL (4.7-6.1); RED CELL DISTRIBUTION WIDTH 16.1 % (11.6-14.6)
[2020-12-25] MEDS: FENTANYL CITRATE/PF 2,500 MCG in SODIUM CHLORIDE 0.9% 200 ML IV PRN ×3 (06:49→21:06)
[2020-12-25] MEDS: DOCUSATE SODIUM SUGAR FREE 100MG/10ML UDC NG SCH ×2 (08:17→18:00)
[2020-12-25] MEDS: FAMOTIDINE 20MG/2ML VIAL IV SCH ×2 (08:18→21:23)
[2020-12-25] MEDS: ASCORBIC ACID 500 MG TABLET PO SCH ×2 (08:18→21:23)
[2020-12-25] MEDS: METOPROLOL TARTRATE 25MG TABLET PO SCH ×2 (08:18→21:23)
[2020-12-25] MEDS: QUETIAPINE FUMARATE 25MG TABLET PO SCH ×2 (08:18→21:24)
[2020-12-25] MEDS: HYDRALAZINE 20MG/ML VIAL IV PRN ×2 (08:18→13:53)
[2020-12-25] MEDS: MIDAZOLAM 100MG/100ML PMX 100 ML IV PRN ×2 (08:20→17:59)
[2020-12-25] MEDS: AMLODIPINE 10MG TABLET PO SCH (13:54)
[2020-12-25] MEDS ORDERED: PROPOFOL 10MG/ML 100ML 100 ML IV PRN (14:45)
[2020-12-25] MEDS: ERGOCALCIFEROL 50000UNITS CAPSULE PO SCH (18:00)
[2020-12-25] MEDS: CEFEPIME 2,000 MG in DEXT 5% WATER 100 ML IV SCH (21:24)
[2020-12-26] VITALS (79 sets, daily range): BP systolic 95–153; BP diastolic 56–83
[2020-12-26] MEDS: INSULIN LISPRO 100 UNITS/ML SUBCUT SCH ×5 (01:08→23:17)
[2020-12-26] MEDS: METOCLOPRAMIDE HCL 10MG/2ML VIAL IV SCH ×5 (01:12→23:03)
[2020-12-26] MEDS: ALBUTEROL (0.083%) 2.5MG/3ML NEB HHN SCH ×4 (02:40→20:05)
[2020-12-26] MEDS: ACETAMINOPHEN 650MG/20.3ML UDC PO PRN ×2 (04:40→22:34)
[2020-12-26] MEDS: BLOOD SUGAR DIAGNOSTIC STRIP TEST SCH ×5 (06:07→23:14)
[2020-12-26] MEDS: FENTANYL CITRATE/PF 2,500 MCG in SODIUM CHLORIDE 0.9% 200 ML IV PRN ×3 (06:10→22:59)
[2020-12-26] MEDS: CEFEPIME 2,000 MG in DEXT 5% WATER 100 ML IV SCH ×3 (06:19→22:29)
[2020-12-26] MEDS: DOCUSATE SODIUM SUGAR FREE 100MG/10ML UDC NG SCH ×2 (10:45→17:15)
[2020-12-26] MEDS: FAMOTIDINE 20MG/2ML VIAL IV SCH ×2 (10:45→22:29)
[2020-12-26] MEDS: ASCORBIC ACID 500 MG TABLET PO SCH ×2 (10:45→22:58)
[2020-12-26] MEDS: METOPROLOL TARTRATE 25MG TABLET PO SCH ×2 (10:46→22:30)
[2020-12-26] MEDS: QUETIAPINE FUMARATE 25MG TABLET PO SCH ×2 (10:46→22:29)
[2020-12-26] MEDS: AMLODIPINE 10MG TABLET PO SCH (10:46)
[2020-12-26] MEDS: MIDAZOLAM 100MG/100ML PMX 100 ML IV PRN ×2 (10:50→14:10)
[2020-12-26 13:39] LABS: BG BASE EXCESS 11.1 mmol/L (-2.0-2.0); BG CARBOXYHEMOGLOBIN 0.3 % (0.5-1.5); BG DEOXYHEMOGLOBIN 1.2 % (0.0-5.0); BG HCO3 ACT 37.6 mmol/L (22.0-26.0); BG METHEMOGLOBIN 0.4 % (0.0-1.5); BG OXYGEN SATURATION 98.8 % (92.0-98.5); BG OXYHEMOGLOBIN 98.1 % (94.0-97.0); BG PCO2 63.7 mmHg (35.0-45.0); BG PH 7.389 (7.350-7.450); BG PO2 180.1 mmHg (75.0-100.0); BG SAMPLE SITE RIGHT RADIAL; BG TOTAL HEMOGLOBIN 8.4 g/dL (12.0-18.0); BG VENT MODE VENT - AC
[2020-12-27] VITALS (92 sets, daily range): BP systolic 94–158; BP diastolic 48–81
[2020-12-27] MEDS: ALBUTEROL (0.083%) 2.5MG/3ML NEB HHN SCH ×4 (02:42→21:13)
[2020-12-27] MEDS: BLOOD SUGAR DIAGNOSTIC STRIP TEST SCH ×4 (05:55→23:25)
[2020-12-27] MEDS: METOCLOPRAMIDE HCL 10MG/2ML VIAL IV SCH ×4 (06:00→23:28)
[2020-12-27] MEDS: MIDAZOLAM 100MG/100ML PMX 100 ML IV PRN ×2 (06:01→16:40)
[2020-12-27] MEDS: CEFEPIME 2,000 MG in DEXT 5% WATER 100 ML IV SCH ×3 (06:02→21:55)
[2020-12-27] MEDS: INSULIN LISPRO 100 UNITS/ML SUBCUT SCH ×4 (06:02→23:29)
[2020-12-27] MEDS: FENTANYL CITRATE/PF 2,500 MCG in SODIUM CHLORIDE 0.9% 200 ML IV PRN ×2 (07:57→16:39)
[2020-12-27] MEDS ORDERED: LORAZEPAM 2MG/ML CPJ IM PRN (09:15)
[2020-12-27 10:04] LABS: BASOPHILS % 0.9 % (0.0-2.0); EOSINOPHILS % 6.4 % (0.0-5.0); HEMATOCRIT. 21.9 % (42.0-52.0); HEMOGLOBIN. 7.2 g/dL (14.0-18.0); LYMPHOCYTES % 9.1 % (20.0-50.0); MEAN CORPUSCULAR HEMOGLOBIN 27.4 pg (28.0-32.0); MEAN CORPUSCULAR VOLUME 83.6 fL (80.0-94.0); MEAN PLATELET VOLUME 8.2 fl (7.4-10.4); MONOCYTES % 9.4 % (2.0-8.0); NEUTROPHILS % 74.2 % (40.0-76.0); PLATELET 603 x1000/uL (130-400); RED BLOOD CELL COUNT 2.62 mill/uL (4.7-6.1); RED CELL DISTRIBUTION WIDTH 16.3 % (11.6-14.6)
[2020-12-27] MEDS: FAMOTIDINE 20MG/2ML VIAL IV SCH ×2 (10:06→21:55)
[2020-12-27] MEDS: DOCUSATE SODIUM SUGAR FREE 100MG/10ML UDC NG SCH ×2 (10:07→16:35)
[2020-12-27] MEDS: QUETIAPINE FUMARATE 25MG TABLET PO SCH ×2 (10:08→22:13)
[2020-12-27] MEDS: METOPROLOL TARTRATE 25MG TABLET PO SCH ×2 (10:08→22:13)
[2020-12-27] MEDS: AMLODIPINE 10MG TABLET PO SCH (10:08)
[2020-12-27 10:59] LABS: CHLORIDE 97 mEq/L (98-107)
[2020-12-27] MEDS: MORPHINE SULFATE 4 MG/ML CPJ (NOT FOR IM USE) IV PRN (12:39)
[2020-12-27] MEDS: ACETAMINOPHEN 650MG/20.3ML UDC PO PRN (13:01)
[2020-12-27] MEDS: LORAZEPAM 2MG/ML CPJ IV PRN (13:26)
[2020-12-27] MEDS ORDERED: SODIUM POLYSTYRENE SULFONATE 15 G/60 ML BOT PO NR (14:30)
[2020-12-27] MEDS: CHLORDIAZEPOXIDE 25MG CAPSULE PO SCH (22:14)
[2020-12-27] MEDS ORDERED: AMIODARONE HCL 900 MG in DEXT 5% WATER 482 ML IV PRN (22:15)
[2020-12-28] VITALS (97 sets, daily range): BP systolic 99–153; BP diastolic 55–92
[2020-12-28] MEDS: LORAZEPAM 2MG/ML CPJ IV PRN ×4 (02:39→23:53)
[2020-12-28] MEDS: MORPHINE SULFATE 4 MG/ML CPJ (NOT FOR IM USE) IV PRN ×4 (02:39→23:53)
[2020-12-28] MEDS: MIDAZOLAM 100MG/100ML PMX 100 ML IV PRN ×2 (03:04→23:54)
[2020-12-28] MEDS: ALBUTEROL (0.083%) 2.5MG/3ML NEB HHN SCH ×4 (03:09→20:24)
[2020-12-28] MEDS: BLOOD SUGAR DIAGNOSTIC STRIP TEST SCH ×4 (05:20→23:47)
[2020-12-28] MEDS: INSULIN LISPRO 100 UNITS/ML SUBCUT SCH ×4 (05:30→23:52)
[2020-12-28 05:38] LABS: BASOPHILS % 1.2 % (0.0-2.0); EOSINOPHILS % 5.2 % (0.0-5.0); HEMATOCRIT. 22.7 % (42.0-52.0); HEMOGLOBIN. 7.3 g/dL (14.0-18.0); LYMPHOCYTES % 11.4 % (20.0-50.0); MEAN CORPUSCULAR HEMOGLOBIN 27.1 pg (28.0-32.0); MEAN CORPUSCULAR VOLUME 84.1 fL (80.0-94.0); MEAN PLATELET VOLUME 8.7 fl (7.4-10.4); MONOCYTES % 8.3 % (2.0-8.0); NEUTROPHILS % 73.9 % (40.0-76.0); PLATELET 689 x1000/uL (130-400); RED CELL DISTRIBUTION WIDTH 16.5 % (11.6-14.6)
[2020-12-28 05:40] LABS: CHLORIDE 98 mEq/L (98-107)
[2020-12-28] MEDS: METOCLOPRAMIDE HCL 10MG/2ML VIAL IV SCH ×4 (05:40→23:52)
[2020-12-28] MEDS: CHLORDIAZEPOXIDE 25MG CAPSULE PO SCH ×3 (05:40→21:52)
[2020-12-28] MEDS: CEFEPIME 2,000 MG in DEXT 5% WATER 100 ML IV SCH ×3 (05:40→21:52)
[2020-12-28] MEDS: AMLODIPINE 10MG TABLET PO SCH (08:20)
[2020-12-28] MEDS: FAMOTIDINE 20MG/2ML VIAL IV SCH ×2 (08:20→21:52)
[2020-12-28] MEDS: DOCUSATE SODIUM SUGAR FREE 100MG/10ML UDC NG SCH ×2 (08:20→16:44)
[2020-12-28] MEDS: METOPROLOL TARTRATE 25MG TABLET PO SCH ×2 (08:21→21:52)
[2020-12-28] MEDS: QUETIAPINE FUMARATE 25MG TABLET PO SCH ×2 (08:21→21:52)
[2020-12-28 09:16] LABS: BG BASE EXCESS 8.6 mmol/L (-2.0-2.0); BG DEOXYHEMOGLOBIN 0.8 % (0.0-5.0); BG FRACTION INSPIRED OXYGEN 35; BG HCO3 ACT 33.6 mmol/L (22.0-26.0); BG METHEMOGLOBIN 0.3 % (0.0-1.5); BG OXYGEN SATURATION 99.2 % (92.0-98.5); BG OXYHEMOGLOBIN 97.9 % (94.0-97.0); BG PCO2 50.3 mmHg (35.0-45.0); BG PH 7.443 (7.350-7.450); BG PO2 137.8 mmHg (75.0-100.0); BG SAMPLE SITE RIGHT RADIAL; BG TOTAL HEMOGLOBIN 7.1 g/dL (12.0-18.0); BG VENT MODE VENT - AC
[2020-12-28] MEDS: ACETAMINOPHEN 650MG/20.3ML UDC PO PRN (16:52)
[2020-12-28] MEDS: FENTANYL CITRATE/PF 2,500 MCG in SODIUM CHLORIDE 0.9% 200 ML IV PRN (23:55)
[2020-12-29] VITALS (61 sets, daily range): BP systolic 105–159; BP diastolic 62–85
[2020-12-29] MEDS: ALBUTEROL (0.083%) 2.5MG/3ML NEB HHN SCH ×4 (00:37→20:45)
[2020-12-29] MEDS: DAPTOMYCIN 400 MG in SODIUM CHLORIDE 0.9% 50 ML IV SCH (01:46)
[2020-12-29] MEDS: BLOOD SUGAR DIAGNOSTIC STRIP TEST SCH ×3 (05:28→18:00)
[2020-12-29] MEDS: INSULIN LISPRO 100 UNITS/ML SUBCUT SCH ×3 (05:28→18:23)
[2020-12-29] MEDS: CEFEPIME 2,000 MG in DEXT 5% WATER 100 ML IV SCH ×3 (05:34→22:29)
[2020-12-29] MEDS: METOCLOPRAMIDE HCL 10MG/2ML VIAL IV SCH ×3 (05:34→17:39)
[2020-12-29] MEDS: CHLORDIAZEPOXIDE 25MG CAPSULE PO SCH ×3 (05:34→22:28)
[2020-12-29] MEDS: DOCUSATE SODIUM SUGAR FREE 100MG/10ML UDC NG SCH ×2 (09:33→17:39)
[2020-12-29] MEDS: AMLODIPINE 10MG TABLET PO SCH (09:35)
[2020-12-29] MEDS: METOPROLOL TARTRATE 25MG TABLET PO SCH (09:36)
[2020-12-29] MEDS: FAMOTIDINE 20MG/2ML VIAL IV SCH ×2 (09:36→22:27)
[2020-12-29] MEDS: QUETIAPINE FUMARATE 25MG TABLET PO SCH (09:36)
[2020-12-29] MEDS: MORPHINE SULFATE 4 MG/ML CPJ (NOT FOR IM USE) IV PRN ×2 (12:30→17:40)
[2020-12-29] MEDS: LORAZEPAM 2MG/ML CPJ IV PRN ×3 (12:30→22:27)
[2020-12-29 13:20] LABS: BG CARBOXYHEMOGLOBIN 0.4 % (0.5-1.5); BG DEOXYHEMOGLOBIN 5.4 % (0.0-5.0); BG FRACTION INSPIRED OXYGEN 30; BG HCO3 ACT 37.7 mmol/L (22.0-26.0); BG METHEMOGLOBIN 0.2 % (0.0-1.5); BG OXYGEN SATURATION 94.6 % (92.0-98.5); BG PCO2 57.8 mmHg (35.0-45.0); BG PH 7.432 (7.350-7.450); BG PO2 74.7 mmHg (75.0-100.0); BG SAMPLE SITE RIGHT RADIAL; BG TOTAL HEMOGLOBIN 7.9 g/dL (12.0-18.0); BG TOTAL RESPIRATORY RATE 34 b/min; BG VENT MODE VENT - AC
[2020-12-29] MEDS: ARIPIPRAZOLE 5MG TABLET PO SCH (14:59)
[2020-12-29] MEDS: METOPROLOL TARTRATE 50MG TABLET PO SCH (22:28)
[2020-12-30] VITALS (37 sets, daily range): BP systolic 108–153; BP diastolic 60–88
[2020-12-30] MEDS: BLOOD SUGAR DIAGNOSTIC STRIP TEST SCH ×4 (01:05→17:05)
[2020-12-30] MEDS: ACETAMINOPHEN 650MG/20.3ML UDC PO PRN ×3 (01:05→22:11)
[2020-12-30] MEDS: INSULIN LISPRO 100 UNITS/ML SUBCUT SCH ×4 (01:05→17:05)
[2020-12-30] MEDS: METOCLOPRAMIDE HCL 10MG/2ML VIAL IV SCH ×4 (01:05→17:04)
[2020-12-30] MEDS: MORPHINE SULFATE 4 MG/ML CPJ (NOT FOR IM USE) IV PRN ×2 (01:05→05:53)
[2020-12-30] MEDS: ALBUTEROL (0.083%) 2.5MG/3ML NEB HHN SCH ×4 (03:09→20:48)
[2020-12-30] MEDS: LORAZEPAM 2MG/ML CPJ IV PRN ×2 (03:13→09:26)
[2020-12-30] MEDS: CHLORDIAZEPOXIDE 25MG CAPSULE PO SCH ×3 (05:52→22:11)
[2020-12-30] MEDS: CEFEPIME 2,000 MG in DEXT 5% WATER 100 ML IV SCH ×3 (06:00→22:11)
[2020-12-30] MEDS: ARIPIPRAZOLE 5MG TABLET PO SCH (09:01)
[2020-12-30] MEDS: AMLODIPINE 10MG TABLET PO SCH (09:01)
[2020-12-30] MEDS: METOPROLOL TARTRATE 50MG TABLET PO SCH ×2 (09:01→22:12)
[2020-12-30] MEDS: DOCUSATE SODIUM SUGAR FREE 100MG/10ML UDC NG SCH ×2 (09:01→17:04)
[2020-12-30] MEDS: FAMOTIDINE 20MG/2ML VIAL IV SCH ×2 (09:02→22:11)
[2020-12-30] MEDS: DAPTOMYCIN 400 MG in SODIUM CHLORIDE 0.9% 50 ML IV SCH (09:07)
[2020-12-30 19:17] LABS: EOSINOPHILS % 2.4 % (0.0-5.0); HEMATOCRIT. 21.7 % (42.0-52.0); LYMPHOCYTES % 15.9 % (20.0-50.0); MEAN CORPUSCULAR HEMOGLOBIN 26.6 pg (28.0-32.0); MEAN CORPUSCULAR VOLUME 84.5 fL (80.0-94.0); MEAN PLATELET VOLUME 8.5 fl (7.4-10.4); MONOCYTES % 9.3 % (2.0-8.0); NEUTROPHILS % 71.4 % (40.0-76.0); PLATELET 646 x1000/uL (130-400); RED BLOOD CELL COUNT 2.57 mill/uL (4.7-6.1); RED CELL DISTRIBUTION WIDTH 16.9 % (11.6-14.6)
[2020-12-30 19:26] LABS: HEMOGLOBIN. 6.9 g/dL (14.0-18.0)
[2020-12-30 19:29] LABS: CHLORIDE 100 mEq/L (98-107)
[2020-12-31] VITALS (18 sets, daily range): BP systolic 119–166; BP diastolic 64–94
[2020-12-31] MEDS: BLOOD SUGAR DIAGNOSTIC STRIP TEST SCH ×4 (00:25→23:18)
[2020-12-31] MEDS: METOCLOPRAMIDE HCL 10MG/2ML VIAL IV SCH ×5 (00:25→23:18)
[2020-12-31] MEDS: INSULIN LISPRO 100 UNITS/ML SUBCUT SCH ×4 (00:36→23:24)
[2020-12-31] MEDS: LORAZEPAM 2MG/ML CPJ IV PRN ×2 (01:26→11:52)
[2020-12-31] MEDS: ALBUTEROL (0.083%) 2.5MG/3ML NEB HHN SCH ×4 (02:47→22:06)
[2020-12-31] MEDS: CHLORDIAZEPOXIDE 25MG CAPSULE PO SCH ×3 (05:34→20:10)
[2020-12-31] MEDS: AMLODIPINE 10MG TABLET PO SCH (08:39)
[2020-12-31] MEDS: METOPROLOL TARTRATE 50MG TABLET PO SCH ×2 (08:39→20:10)
[2020-12-31 10:12] LABS: BG BASE EXCESS 10.5 mmol/L (-2.0-2.0); BG CARBOXYHEMOGLOBIN 0.3 % (0.5-1.5); BG DEOXYHEMOGLOBIN 4.3 % (0.0-5.0); BG FRACTION INSPIRED OXYGEN 30; BG HCO3 ACT 36.4 mmol/L (22.0-26.0); BG METHEMOGLOBIN 0.2 % (0.0-1.5); BG OXYGEN SATURATION 95.7 % (92.0-98.5); BG OXYHEMOGLOBIN 95.2 % (94.0-97.0); BG PCO2 56.5 mmHg (35.0-45.0); BG PH 7.427 (7.350-7.450); BG PO2 79.8 mmHg (75.0-100.0); BG SAMPLE SITE RIGHT RADIAL; BG TOTAL RESPIRATORY RATE 30 b/min; BG VENT MODE VENT - AC
[2020-12-31] MEDS: DAPTOMYCIN 400 MG in SODIUM CHLORIDE 0.9% 50 ML IV SCH (10:33)
[2020-12-31] MEDS: ARIPIPRAZOLE 5MG TABLET PO SCH (10:33)
[2020-12-31] MEDS: DOCUSATE SODIUM SUGAR FREE 100MG/10ML UDC NG SCH ×2 (10:33→18:15)
[2020-12-31 11:56] LABS: BASOPHILS % 0.7 % (0.0-2.0); HEMATOCRIT. 27.7 % (42.0-52.0); HEMOGLOBIN. 9.1 g/dL (14.0-18.0); MEAN CORPUSCULAR HEMOGLOBIN 28.1 pg (28.0-32.0); MEAN CORPUSCULAR VOLUME 85.3 fL (80.0-94.0); MEAN PLATELET VOLUME 8.9 fl (7.4-10.4); MONOCYTES % 10.5 % (2.0-8.0); NEUTROPHILS % 70.8 % (40.0-76.0); PLATELET 485 x1000/uL (130-400); RED BLOOD CELL COUNT 3.24 mill/uL (4.7-6.1); RED CELL DISTRIBUTION WIDTH 16.4 % (11.6-14.6)
[2020-12-31 12:14] LABS: CHLORIDE 102 mEq/L (98-107)
[2020-12-31] MEDS: FAMOTIDINE 20MG/2ML VIAL IV SCH ×2 (14:07→20:10)
[2020-12-31] MEDS: MORPHINE SULFATE 4 MG/ML CPJ (NOT FOR IM USE) IV PRN (14:08)
[2020-12-31 18:25] LABS: CREATINE KINASE 25 IU/L (39-308)
[2020-12-31] MEDS: ACETAMINOPHEN 650MG/20.3ML UDC PO PRN (18:41)
[2020-12-31] MEDS ORDERED: DEXTROSE 50% WATER 50ML SYRINGE IV PRN (20:00)
[2021-01-01] VITALS (12 sets, daily range): BP systolic 120–167; BP diastolic 70–92
[2021-01-01] MEDS: ALBUTEROL (0.083%) 2.5MG/3ML NEB HHN SCH ×4 (02:53→21:10)
[2021-01-01] MEDS: METOCLOPRAMIDE HCL 10MG/2ML VIAL IV SCH ×3 (05:07→17:39)
[2021-01-01] MEDS: CHLORDIAZEPOXIDE 25MG CAPSULE PO SCH ×3 (05:07→22:47)
[2021-01-01] MEDS: BLOOD SUGAR DIAGNOSTIC STRIP TEST SCH ×3 (05:07→17:38)
[2021-01-01] MEDS: INSULIN LISPRO 100 UNITS/ML SUBCUT SCH ×3 (05:08→17:38)
[2021-01-01] MEDS: FAMOTIDINE 20MG/2ML VIAL IV SCH ×2 (09:42→22:46)
[2021-01-01] MEDS: ARIPIPRAZOLE 5MG TABLET PO SCH (09:42)
[2021-01-01] MEDS: DOCUSATE SODIUM SUGAR FREE 100MG/10ML UDC NG SCH ×2 (09:43→16:17)
[2021-01-01] MEDS: AMLODIPINE 10MG TABLET PO SCH (09:43)
[2021-01-01] MEDS: METOPROLOL TARTRATE 50MG TABLET PO SCH ×2 (09:43→22:47)
[2021-01-01] MEDS: DAPTOMYCIN 400 MG in SODIUM CHLORIDE 0.9% 50 ML IV SCH (09:43)
[2021-01-01 12:19] LABS: BG BASE EXCESS 11.3 mmol/L (-2.0-2.0); BG CARBOXYHEMOGLOBIN 0.3 % (0.5-1.5); BG DEOXYHEMOGLOBIN 1.2 % (0.0-5.0); BG FRACTION INSPIRED OXYGEN 40; BG HCO3 ACT 36.9 mmol/L (22.0-26.0); BG METHEMOGLOBIN 0.1 % (0.0-1.5); BG OXYGEN SATURATION 98.8 % (92.0-98.5); BG OXYHEMOGLOBIN 98.4 % (94.0-97.0); BG PCO2 54.3 mmHg (35.0-45.0); BG PO2 169.6 mmHg (75.0-100.0); BG SAMPLE SITE LEFT RADIAL; BG TOTAL HEMOGLOBIN 10.3 g/dL (12.0-18.0); BG VENT MODE VENT - AC
[2021-01-02] VITALS (11 sets, daily range): BP systolic 131–153; BP diastolic 73–90
[2021-01-02] MEDS: BLOOD SUGAR DIAGNOSTIC STRIP TEST SCH ×4 (00:14→17:29)
[2021-01-02] MEDS: METOCLOPRAMIDE HCL 10MG/2ML VIAL IV SCH ×4 (00:14→17:33)
[2021-01-02] MEDS: INSULIN LISPRO 100 UNITS/ML SUBCUT SCH ×4 (00:33→17:30)
[2021-01-02] MEDS: ALBUTEROL (0.083%) 2.5MG/3ML NEB HHN SCH ×4 (02:32→21:04)
[2021-01-02] MEDS: ARIPIPRAZOLE 5MG TABLET PO SCH (08:57)
[2021-01-02] MEDS: DOCUSATE SODIUM SUGAR FREE 100MG/10ML UDC NG SCH ×2 (08:57→17:33)
[2021-01-02] MEDS: METOPROLOL TARTRATE 50MG TABLET PO SCH ×2 (08:57→21:02)
[2021-01-02] MEDS: AMLODIPINE 10MG TABLET PO SCH (08:58)
[2021-01-02] MEDS: FAMOTIDINE 20MG/2ML VIAL IV SCH ×2 (08:58→21:02)
[2021-01-02] MEDS: DAPTOMYCIN 400 MG in SODIUM CHLORIDE 0.9% 50 ML IV SCH (09:26)
[2021-01-02 15:31] LABS: BG BASE EXCESS 9.2 mmol/L (-2.0-2.0); BG CARBOXYHEMOGLOBIN 0.2 % (0.5-1.5); BG FRACTION INSPIRED OXYGEN 40; BG HCO3 ACT 33.7 mmol/L (22.0-26.0); BG METHEMOGLOBIN 0.3 % (0.0-1.5); BG OXYHEMOGLOBIN 98.5 % (94.0-97.0); BG PCO2 45.8 mmHg (35.0-45.0); BG PH 7.484 (7.350-7.450); BG PO2 155.7 mmHg (75.0-100.0); BG SAMPLE SITE RIGHT RADIAL; BG TOTAL HEMOGLOBIN 9.8 g/dL (12.0-18.0); BG TOTAL RESPIRATORY RATE 36 b/min; BG VENT MODE VENT - AC
[2021-01-03] VITALS (11 sets, daily range): BP systolic 129–153; BP diastolic 69–80
[2021-01-03] MEDS: METOCLOPRAMIDE HCL 10MG/2ML VIAL IV SCH ×3 (01:32→11:38)
[2021-01-03] MEDS: ALBUTEROL (0.083%) 2.5MG/3ML NEB HHN SCH ×4 (03:02→21:00)
[2021-01-03] MEDS: BLOOD SUGAR DIAGNOSTIC STRIP TEST SCH ×4 (05:49→18:29)
[2021-01-03] MEDS: INSULIN LISPRO 100 UNITS/ML SUBCUT SCH ×4 (06:00→18:00)
[2021-01-03 06:16] LABS: BASOPHILS % 0.5 % (0.0-2.0); EOSINOPHILS % 3.5 % (0.0-5.0); HEMATOCRIT. 26.6 % (42.0-52.0); HEMOGLOBIN. 8.9 g/dL (14.0-18.0); LYMPHOCYTES % 13.3 % (20.0-50.0); MEAN CORPUSCULAR HEMOGLOBIN 28.3 pg (28.0-32.0); MEAN CORPUSCULAR VOLUME 84.1 fL (80.0-94.0); MONOCYTES % 8.7 % (2.0-8.0); PLATELET 461 x1000/uL (130-400); RED BLOOD CELL COUNT 3.17 mill/uL (4.7-6.1)
[2021-01-03 06:20] LABS: INR 1.2; PROTHROMBIN TIME 12.2 sec (9.6-11.0)
[2021-01-03 07:52] LABS: CHLORIDE 101 mEq/L (98-107)
[2021-01-03] MEDS: ARIPIPRAZOLE 5MG TABLET PO SCH (08:34)
[2021-01-03] MEDS: DOCUSATE SODIUM SUGAR FREE 100MG/10ML UDC NG SCH ×2 (08:34→18:52)
[2021-01-03] MEDS: AMLODIPINE 10MG TABLET PO SCH (09:00)
[2021-01-03] MEDS: DAPTOMYCIN 400 MG in SODIUM CHLORIDE 0.9% 50 ML IV SCH (09:00)
[2021-01-03] MEDS: FAMOTIDINE 20MG/2ML VIAL IV SCH ×2 (09:00→20:35)
[2021-01-03] MEDS: METOPROLOL TARTRATE 50MG TABLET PO SCH ×2 (09:00→20:35)
[2021-01-03] MEDS ORDERED: CEFAZOLIN 1000MG PREMIX 50 ML IV NR (12:00)
[2021-01-03] MEDS ORDERED: MIDAZOLAM HCL 5 MG/5 ML VIAL ONE (14:36)
[2021-01-03] MEDS ORDERED: FENTANYL CITRATE/PF 50MCG/ML 2ML VIAL ONE (14:36)
[2021-01-03] MEDS ORDERED: DIPHENHYDRAMINE 50MG/ML VIAL ONE (14:37)
[2021-01-03] MEDS ORDERED: FENTANYL CITRATE/PF 50MCG/ML 2ML VIAL IV PRN (16:00)
[2021-01-03] MEDS ORDERED: MIDAZOLAM HCL 5 MG/5 ML VIAL IV PRN (16:01)
[2021-01-04] VITALS (12 sets, daily range): BP systolic 134–150; BP diastolic 68–79
[2021-01-04] MEDS: ALBUTEROL (0.083%) 2.5MG/3ML NEB HHN SCH ×4 (04:41→21:23)
[2021-01-04] MEDS: INSULIN LISPRO 100 UNITS/ML SUBCUT SCH ×5 (06:00→23:17)
[2021-01-04] MEDS: BLOOD SUGAR DIAGNOSTIC STRIP TEST SCH ×5 (06:00→23:13)
[2021-01-04 06:53] LABS: BASOPHILS % 0.7 % (0.0-2.0); EOSINOPHILS % 3.9 % (0.0-5.0); HEMATOCRIT. 27.7 % (42.0-52.0); LYMPHOCYTES % 18.9 % (20.0-50.0); MEAN CORPUSCULAR HEMOGLOBIN 27.5 pg (28.0-32.0); MEAN CORPUSCULAR VOLUME 84.7 fL (80.0-94.0); MEAN PLATELET VOLUME 8.3 fl (7.4-10.4); MONOCYTES % 8.1 % (2.0-8.0); NEUTROPHILS % 68.4 % (40.0-76.0); PLATELET 458 x1000/uL (130-400); RED BLOOD CELL COUNT 3.27 mill/uL (4.7-6.1); RED CELL DISTRIBUTION WIDTH 16.1 % (11.6-14.6)
[2021-01-04 07:05] LABS: CHLORIDE 102 mEq/L (98-107)
[2021-01-04] MEDS: ARIPIPRAZOLE 5MG TABLET PO SCH (08:41)
[2021-01-04] MEDS: FAMOTIDINE 20MG/2ML VIAL IV SCH ×2 (08:41→20:39)
[2021-01-04] MEDS: DOCUSATE SODIUM SUGAR FREE 100MG/10ML UDC NG SCH ×2 (08:41→16:26)
[2021-01-04] MEDS: METOPROLOL TARTRATE 50MG TABLET PO SCH ×2 (08:42→20:38)
[2021-01-04] MEDS: AMLODIPINE 10MG TABLET PO SCH (08:43)
[2021-01-04 12:14] LABS: BG BASE EXCESS 7.7 mmol/L (-2.0-2.0); BG CARBOXYHEMOGLOBIN 0.9 % (0.5-1.5); BG DEOXYHEMOGLOBIN 5.1 % (0.0-5.0); BG FRACTION INSPIRED OXYGEN 30; BG HCO3 ACT 31.9 mmol/L (22.0-26.0); BG METHEMOGLOBIN 0.1 % (0.0-1.5); BG OXYGEN SATURATION 94.8 % (92.0-98.5); BG OXYHEMOGLOBIN 93.9 % (94.0-97.0); BG PCO2 43.4 mmHg (35.0-45.0); BG PH 7.484 (7.350-7.450); BG PO2 70.7 mmHg (75.0-100.0); BG SAMPLE SITE LEFT RADIAL; BG TOTAL HEMOGLOBIN 9.8 g/dL (12.0-18.0); BG TOTAL RESPIRATORY RATE 41 b/min; BG VENT MODE VENT - AC
[2021-01-04] MEDS: ACETAMINOPHEN 650MG/20.3ML UDC PO PRN (16:58)
[2021-01-04] MEDS ORDERED: AMOX1TAB16 MT (19:31)
[2021-01-04 23:15] LABS: CLARITY URINE TURBID (CLEAR); COLOR URINE YELLOW (YELLOW); KETONES URINE NEGATIVE (NEGATIVE); LEUKOCYTE ESTERASE URINE NEGATIVE (NEGATIVE); NITRITE URINE NEGATIVE (NEGATIVE); OCCULT BLOOD URINE NEGATIVE (NEGATIVE); PH URINE 7.5 (4.5-8.0); PROTEIN URINE TRACE (NEGATIVE); SPECIFIC GRAVITY URINE 1.019 (1.005-1.030)
[2021-01-05] VITALS (12 sets, daily range): BP systolic 128–151; BP diastolic 67–80
[2021-01-05] MEDS: ACETAMINOPHEN 650MG/20.3ML UDC PO PRN (00:10)
[2021-01-05] MEDS: ALBUTEROL (0.083%) 2.5MG/3ML NEB HHN SCH ×4 (02:45→20:46)
[2021-01-05] MEDS: INSULIN LISPRO 100 UNITS/ML SUBCUT SCH ×4 (05:12→23:37)
[2021-01-05] MEDS: BLOOD SUGAR DIAGNOSTIC STRIP TEST SCH ×4 (05:12→23:37)
[2021-01-05] MEDS: FAMOTIDINE 20MG/2ML VIAL IV SCH ×2 (08:29→22:00)
[2021-01-05] MEDS: DOCUSATE SODIUM SUGAR FREE 100MG/10ML UDC NG SCH ×2 (08:29→17:29)
[2021-01-05] MEDS: AMLODIPINE 10MG TABLET PO SCH (08:29)
[2021-01-05] MEDS: ARIPIPRAZOLE 5MG TABLET PO SCH (08:30)
[2021-01-05] MEDS: METOPROLOL TARTRATE 50MG TABLET PO SCH ×2 (08:30→22:00)
[2021-01-06] VITALS (12 sets, daily range): BP systolic 115–152; BP diastolic 65–80
[2021-01-06] MEDS: ALBUTEROL (0.083%) 2.5MG/3ML NEB HHN SCH ×3 (03:20→15:29)
[2021-01-06] MEDS: BLOOD SUGAR DIAGNOSTIC STRIP TEST SCH ×3 (05:17→17:28)
[2021-01-06] MEDS: INSULIN LISPRO 100 UNITS/ML SUBCUT SCH ×3 (05:19→23:30)
[2021-01-06] MEDS: FAMOTIDINE 20MG/2ML VIAL IV SCH ×2 (08:17→21:31)
[2021-01-06] MEDS: DOCUSATE SODIUM SUGAR FREE 100MG/10ML UDC NG SCH ×2 (08:17→17:28)
[2021-01-06] MEDS: ARIPIPRAZOLE 5MG TABLET PO SCH (08:18)
[2021-01-06] MEDS: METOPROLOL TARTRATE 50MG TABLET PO SCH ×2 (08:19→21:31)
[2021-01-06] MEDS: AMLODIPINE 10MG TABLET PO SCH (08:19)
[2021-01-06] MEDS: ACETAMINOPHEN 650MG/20.3ML UDC PO PRN ×2 (10:37→23:23)
[2021-01-07] VITALS (12 sets, daily range): BP systolic 123–145; BP diastolic 66–82
[2021-01-07] MEDS: ALBUTEROL (0.083%) 2.5MG/3ML NEB HHN SCH ×4 (01:47→21:00)
[2021-01-07] MEDS: BLOOD SUGAR DIAGNOSTIC STRIP TEST SCH ×4 (05:03→17:52)
[2021-01-07] MEDS: INSULIN LISPRO 100 UNITS/ML SUBCUT SCH ×3 (05:04→17:51)
[2021-01-07] MEDS: DOCUSATE SODIUM SUGAR FREE 100MG/10ML UDC NG SCH ×2 (08:33→18:22)
[2021-01-07] MEDS: FAMOTIDINE 20MG/2ML VIAL IV SCH ×2 (08:33→21:51)
[2021-01-07] MEDS: ARIPIPRAZOLE 5MG TABLET PO SCH (08:33)
[2021-01-07] MEDS: METOPROLOL TARTRATE 50MG TABLET PO SCH ×2 (08:34→21:51)
[2021-01-07] MEDS: AMLODIPINE 10MG TABLET PO SCH (08:34)
[2021-01-07 09:45] LABS: BG BASE EXCESS 6.8 mmol/L (-2.0-2.0); BG CARBOXYHEMOGLOBIN 1.5 % (0.5-1.5); BG DEOXYHEMOGLOBIN 0.9 % (0.0-5.0); BG FRACTION INSPIRED OXYGEN 30; BG HCO3 ACT 31.6 mmol/L (22.0-26.0); BG METHEMOGLOBIN 0.1 % (0.0-1.5); BG OXYGEN SATURATION 99.1 % (92.0-98.5); BG OXYHEMOGLOBIN 97.5 % (94.0-97.0); BG PCO2 45.8 mmHg (35.0-45.0); BG PH 7.457 (7.350-7.450); BG SAMPLE SITE RIGHT RADIAL; BG VENT MODE VENT - AC
[2021-01-07 16:58] LABS: BASOPHILS % 0.9 % (0.0-2.0); EOSINOPHILS % 7.3 % (0.0-5.0); HEMATOCRIT. 30.4 % (42.0-52.0); LYMPHOCYTES % 18.4 % (20.0-50.0); MEAN CORPUSCULAR HEMOGLOBIN 27.5 pg (28.0-32.0); MEAN CORPUSCULAR VOLUME 83.7 fL (80.0-94.0); MEAN PLATELET VOLUME 8.2 fl (7.4-10.4); MONOCYTES % 8.5 % (2.0-8.0); NEUTROPHILS % 64.9 % (40.0-76.0); PLATELET 567 x1000/uL (130-400); RED BLOOD CELL COUNT 3.63 mill/uL (4.7-6.1)
[2021-01-07 17:09] LABS: CHLORIDE 98 mEq/L (98-107)
[2021-01-08] VITALS (11 sets, daily range): BP systolic 112–144; BP diastolic 65–85
[2021-01-08] MEDS: ALBUTEROL (0.083%) 2.5MG/3ML NEB HHN SCH ×4 (02:56→21:30)
[2021-01-08] MEDS: INSULIN LISPRO 100 UNITS/ML SUBCUT SCH ×5 (06:00→23:48)
[2021-01-08] MEDS: BLOOD SUGAR DIAGNOSTIC STRIP TEST SCH ×5 (06:04→23:48)
[2021-01-08] MEDS: DOCUSATE SODIUM SUGAR FREE 100MG/10ML UDC NG SCH ×2 (09:01→17:01)
[2021-01-08] MEDS: AMLODIPINE 10MG TABLET PO SCH (09:02)
[2021-01-08] MEDS: FAMOTIDINE 20MG/2ML VIAL IV SCH ×2 (09:02→20:19)
[2021-01-08] MEDS: METOPROLOL TARTRATE 50MG TABLET PO SCH ×2 (09:02→20:18)
[2021-01-08] MEDS: ARIPIPRAZOLE 5MG TABLET PO SCH (09:02)
[2021-01-09] VITALS (12 sets, daily range): BP systolic 120–153; BP diastolic 69–84
[2021-01-09] MEDS: ALBUTEROL (0.083%) 2.5MG/3ML NEB HHN SCH ×4 (03:43→21:07)
[2021-01-09] MEDS: INSULIN LISPRO 100 UNITS/ML SUBCUT SCH ×4 (06:00→23:46)
[2021-01-09] MEDS: BLOOD SUGAR DIAGNOSTIC STRIP TEST SCH ×4 (06:01→23:46)
[2021-01-09 09:28] LABS: BG BASE EXCESS 8.4 mmol/L (-2.0-2.0); BG CARBOXYHEMOGLOBIN 0.3 % (0.5-1.5); BG DEOXYHEMOGLOBIN 1.8 % (0.0-5.0); BG FRACTION INSPIRED OXYGEN 30; BG HCO3 ACT 33.3 mmol/L (22.0-26.0); BG METHEMOGLOBIN 0.2 % (0.0-1.5); BG OXYGEN SATURATION 98.2 % (92.0-98.5); BG OXYHEMOGLOBIN 97.7 % (94.0-97.0); BG PCO2 47.9 mmHg (35.0-45.0); BG PO2 116.2 mmHg (75.0-100.0); BG SAMPLE SITE RIGHT RADIAL; BG TOTAL HEMOGLOBIN 10.2 g/dL (12.0-18.0); BG VENT MODE VENT - AC
[2021-01-09] MEDS: AMLODIPINE 10MG TABLET PO SCH (09:32)
[2021-01-09] MEDS: DOCUSATE SODIUM SUGAR FREE 100MG/10ML UDC NG SCH ×2 (09:32→18:47)
[2021-01-09] MEDS: ARIPIPRAZOLE 5MG TABLET PO SCH (09:32)
[2021-01-09] MEDS: FAMOTIDINE 20MG/2ML VIAL IV SCH ×2 (09:32→21:19)
[2021-01-09] MEDS: METOPROLOL TARTRATE 50MG TABLET PO SCH ×2 (09:33→21:20)
[2021-01-09] MEDS ORDERED: GUAIFENESIN 600MG ER TABLET PO SCH (21:00)
[2021-01-09] MEDS: GUAIFENESIN 200MG/10ML SUGAR FREE UDC NG SCH (21:19)
[2021-01-10] VITALS (12 sets, daily range): BP systolic 110–150; BP diastolic 61–84
[2021-01-10] MEDS: ALBUTEROL (0.083%) 2.5MG/3ML NEB HHN SCH ×4 (01:29→21:50)
[2021-01-10] MEDS: BLOOD SUGAR DIAGNOSTIC STRIP TEST SCH ×4 (05:34→23:35)
[2021-01-10] MEDS: GUAIFENESIN 200MG/10ML SUGAR FREE UDC NG SCH ×3 (05:34→21:35)
[2021-01-10] MEDS: INSULIN LISPRO 100 UNITS/ML SUBCUT SCH ×4 (05:35→23:35)
[2021-01-10] MEDS ORDERED: GUAIFENESIN-DM 200MG-20MG/10ML UDC PO SCH (06:00)
[2021-01-10] MEDS: ARIPIPRAZOLE 5MG TABLET PO SCH (08:38)
[2021-01-10] MEDS: FAMOTIDINE 20MG/2ML VIAL IV SCH ×2 (08:38→21:36)
[2021-01-10] MEDS: METOPROLOL TARTRATE 50MG TABLET PO SCH ×2 (08:40→21:36)
[2021-01-10] MEDS: AMLODIPINE 10MG TABLET PO SCH (08:40)
[2021-01-10 09:15] LABS: BG CARBOXYHEMOGLOBIN 1.4 % (0.5-1.5); BG DEOXYHEMOGLOBIN 1.1 % (0.0-5.0); BG FRACTION INSPIRED OXYGEN 30; BG HCO3 ACT 32.7 mmol/L (22.0-26.0); BG METHEMOGLOBIN 0.2 % (0.0-1.5); BG OXYGEN SATURATION 98.9 % (92.0-98.5); BG OXYHEMOGLOBIN 97.3 % (94.0-97.0); BG PCO2 46.2 mmHg (35.0-45.0); BG PH 7.468 (7.350-7.450); BG PO2 129.7 mmHg (75.0-100.0); BG SAMPLE SITE RIGHT BRACHIAL; BG VENT MODE VENT - AC
[2021-01-10] MEDS: DOCUSATE SODIUM SUGAR FREE 100MG/10ML UDC NG SCH (09:40)
[2021-01-11] VITALS (12 sets, daily range): BP systolic 118–144; BP diastolic 65–79
[2021-01-11] MEDS: BLOOD SUGAR DIAGNOSTIC STRIP TEST SCH ×3 (05:59→17:54)
[2021-01-11] MEDS: GUAIFENESIN 200MG/10ML SUGAR FREE UDC NG SCH ×3 (05:59→22:25)
[2021-01-11] MEDS: INSULIN LISPRO 100 UNITS/ML SUBCUT SCH ×3 (05:59→17:54)
[2021-01-11] MEDS: AMLODIPINE 10MG TABLET PO SCH (08:15)
[2021-01-11] MEDS: ARIPIPRAZOLE 5MG TABLET PO SCH (08:15)
[2021-01-11] MEDS: FAMOTIDINE 20MG/2ML VIAL IV SCH ×2 (08:15→20:36)
[2021-01-11] MEDS: METOPROLOL TARTRATE 50MG TABLET PO SCH ×2 (08:16→20:36)
[2021-01-11] MEDS: ALBUTEROL (0.083%) 2.5MG/3ML NEB HHN SCH ×3 (08:38→21:08)
[2021-01-11 13:13] LABS: HEMATOCRIT. 30.1 % (42.0-52.0); HEMOGLOBIN. 9.7 g/dL (14.0-18.0); MEAN CORPUSCULAR HEMOGLOBIN 27.4 pg (28.0-32.0); MEAN CORPUSCULAR VOLUME 84.8 fL (80.0-94.0); MEAN PLATELET VOLUME 7.9 fl (7.4-10.4); PLATELET 524 x1000/uL (130-400); RED BLOOD CELL COUNT 3.55 mill/uL (4.7-6.1); RED CELL DISTRIBUTION WIDTH 16.5 % (11.6-14.6)
[2021-01-11 13:38] LABS: CHLORIDE 103 mEq/L (98-107)
[2021-01-11 20:32] LABS: PLATELET ESTIMATE INCREASED
[2021-01-12] VITALS (12 sets, daily range): BP systolic 113–160; BP diastolic 66–99
[2021-01-12] MEDS: ALBUTEROL (0.083%) 2.5MG/3ML NEB HHN SCH ×5 (02:38→20:40)
[2021-01-12] MEDS: INSULIN LISPRO 100 UNITS/ML SUBCUT SCH ×5 (06:00→23:52)
[2021-01-12] MEDS: BLOOD SUGAR DIAGNOSTIC STRIP TEST SCH ×5 (06:20→23:36)
[2021-01-12] MEDS: GUAIFENESIN 200MG/10ML SUGAR FREE UDC NG SCH ×3 (06:20→21:19)
[2021-01-12] MEDS: AMLODIPINE 10MG TABLET PO SCH (08:51)
[2021-01-12] MEDS: ARIPIPRAZOLE 5MG TABLET PO SCH (08:51)
[2021-01-12] MEDS: METOPROLOL TARTRATE 50MG TABLET PO SCH ×2 (08:52→21:20)
[2021-01-12] MEDS: FAMOTIDINE 20MG/2ML VIAL IV SCH ×2 (08:52→21:20)
[2021-01-12 10:14] LABS: BG BASE EXCESS 8.2 mmol/L (-2.0-2.0); BG CARBOXYHEMOGLOBIN 0.3 % (0.5-1.5); BG FRACTION INSPIRED OXYGEN 30; BG HCO3 ACT 33.5 mmol/L (22.0-26.0); BG METHEMOGLOBIN 0.1 % (0.0-1.5); BG OXYHEMOGLOBIN 97.6 % (94.0-97.0); BG PCO2 50.9 mmHg (35.0-45.0); BG PH 7.436 (7.350-7.450); BG PO2 112.8 mmHg (75.0-100.0); BG SAMPLE SITE LEFT BRACHIAL; BG TOTAL RESPIRATORY RATE 22 b/min; BG VENT MODE VENT - AC
[2021-01-12] MEDS: DOCUSATE SODIUM SUGAR FREE 100MG/10ML UDC NG SCH (14:53)
[2021-01-13] VITALS: BP 144/78
[2021-01-13 01:42] VITALS: BP 142/79
[2021-01-13] MEDS: ALBUTEROL (0.083%) 2.5MG/3ML NEB HHN SCH ×3 (02:38→13:55)
[2021-01-13 04:00] VITALS: BP 114/68
[2021-01-13] MEDS: GUAIFENESIN 200MG/10ML SUGAR FREE UDC NG SCH ×2 (05:08→17:31)
[2021-01-13] MEDS: BLOOD SUGAR DIAGNOSTIC STRIP TEST SCH ×3 (05:09→17:31)
[2021-01-13] MEDS: INSULIN LISPRO 100 UNITS/ML SUBCUT SCH ×3 (05:19→17:29)
[2021-01-13 06:00] VITALS: BP 136/76
[2021-01-13] MEDS: ARIPIPRAZOLE 5MG TABLET PO SCH (09:03)
[2021-01-13] MEDS: METOPROLOL TARTRATE 50MG TABLET PO SCH (09:03)
[2021-01-13] MEDS: FAMOTIDINE 20MG/2ML VIAL IV SCH (09:04)
[2021-01-13] MEDS: AMLODIPINE 10MG TABLET PO SCH (09:04)
[2021-01-13] MEDS: DOCUSATE SODIUM SUGAR FREE 100MG/10ML UDC NG SCH (09:04)
[2021-01-13 09:43] LABS: BG CARBOXYHEMOGLOBIN 0.7 % (0.5-1.5); BG DEOXYHEMOGLOBIN 1.1 % (0.0-5.0); BG FRACTION INSPIRED OXYGEN 30; BG HCO3 ACT 32.9 mmol/L (22.0-26.0); BG METHEMOGLOBIN 0.2 % (0.0-1.5); BG OXYGEN SATURATION 98.9 % (92.0-98.5); BG PCO2 47.7 mmHg (35.0-45.0); BG PH 7.457 (7.350-7.450); BG PO2 142.4 mmHg (75.0-100.0); BG SAMPLE SITE LEFT RADIAL; BG TOTAL HEMOGLOBIN 10.8 g/dL (12.0-18.0); BG TOTAL RESPIRATORY RATE 33 b/min; BG VENT MODE VENT - AC
[2021-01-13 17:41] VITALS: BP 129/79
[2021-01-13] MEDS ORDERED: LORAZEPAM 2MG/ML CPJ IV NR (18:45)
== END 2021-01-13 19:57 | DRG 4 ==
LOC: EDBD 13:12 → ER 13:12 → MICUSO 19:03 → EDBEDREQTM 19:07 → EDBEDREQ 19:07 → EDBEDREQSVC 19:07 → CVICU 12-02 15:30 → MICUSO 12-21 04:50 → 5EST 12-30 16:15
PROVIDERS: ADMIT Hospitalist; ATTEND Hospitalist
PROC: 5A1955Z Respiratory Ventilation, Greater than 96 Consecutive Hours (ICD-10-PCS; principal; 2020-11-22)
PROC: 5A12012 Performance of Cardiac Output, Single, Manual (ICD-10-PCS; 2020-11-22)
PROC: 0BH17EZ Insertion of Endotracheal Airway into Trachea, Via Natural or Artificial Opening (ICD-10-PCS; 2020-11-22)
PROC: 06HY33Z Insertion of Infusion Device into Lower Vein, Percutaneous Approach (ICD-10-PCS; 2020-11-22)
PROC: B54CZZA Ultrasonography of Left Lower Extremity Veins, Guidance (ICD-10-PCS; 2020-11-22)
PROC: 02HV33Z Insertion of Infusion Device into Superior Vena Cava, Percutaneous Approach (ICD-10-PCS; 2020-12-09)
PROC: B548ZZA Ultrasonography of Superior Vena Cava, Guidance (ICD-10-PCS; 2020-12-09)
PROC: 30233N1 Transfusion of Nonautologous Red Blood Cells into Peripheral Vein, Percutaneous Approach (ICD-10-PCS; 2020-12-17)
PROC: 0B110F4 Bypass Trachea to Cutaneous with Tracheostomy Device, Open Approach (ICD-10-PCS; 2020-12-23)
PROC: 0GBJ0ZZ Excision of Thyroid Gland Isthmus, Open Approach (ICD-10-PCS; 2020-12-23)
PROC: 0DB78ZX Excision of Stomach, Pylorus, Via Natural or Artificial Opening Endoscopic, Diagnostic (ICD-10-PCS; 2021-01-03)
PROC: 0DH63UZ Insertion of Feeding Device into Stomach, Percutaneous Approach (ICD-10-PCS; 2021-01-03)
DX: A41.89 Other specified sepsis (principal); R65.21 Severe sepsis with septic shock; J96.01 Acute respiratory failure with hypoxia; U07.1 COVID-19; J12.82 Pneumonia due to coronavirus disease 2019; G92 Toxic encephalopathy; E43 Unspecified severe protein-calorie malnutrition; E11.65 Type 2 diabetes mellitus with hyperglycemia; T38.0X5A Adverse effect of glucocorticoids and synthetic analogues, initial encounter; K29.70 Gastritis, unspecified, without bleeding; Z78.1 Physical restraint status; E87.2 Acidosis; G40.909 Epilepsy, unspecified, not intractable, without status epilepticus; I10 Essential (primary) hypertension; Y92.89 Other specified places as the place of occurrence of the external cause; N39.0 Urinary tract infection, site not specified; E87.5 Hyperkalemia; E87.1 Hypo-osmolality and hyponatremia; I46.8 Cardiac arrest due to other underlying condition; E87.0 Hyperosmolality and hypernatremia; Z16.21 Resistance to vancomycin; B95.2 Enterococcus as the cause of diseases classified elsewhere; R13.12 Dysphagia, oropharyngeal phase; D64.9 Anemia, unspecified; Z68.1 Body mass index [BMI] 19.9 or less, adult
CPT/HCPCS: 36415; 36600; 70551; 71045; 71275; 76937; 80048; 80053; 80202; 81003; 82375; 82550; 82553; 82728; 82805; 82962; 83036; 83615; 83735; 83880; 84100; 84132; 84145; 84478; 84484; 85014; 85018; 85025; 85027; 85379; 86140; 86850; 86900; 86920; 87070; 87077; 87186; 87426; 87635; 88305; 88313; 93005; 93970; 93971; 94003; 94640; 96365; 97110; 97162; 97166; 97530; 99291; A6261; C1725; C9113; J0360; J0456; J0690; J0692; J0696; J0878; J1100; J1200; J1650; J1815; J2060; J2250; J2270; J2370; J2704; J2765; J3010; J3370; J3490; J7040; J7050; J7060; J7070; P9016; Q9967; A4315